=== PATIENT | female | born 1960 | race Caucasian/White ===

== ENCOUNTER → 2017-02-12 | Outpatient (CLI) | payer OTHER ==
[~2017-02-12] MED LIST: CYCL10TA9 PO; HYDR1TAB PO; IBP800T PO; LISI10TA PO
--- NOTE | 2017-02-12 15:32 | Diagnostic Imaging Report ---
Bilateral screening mammogram 2D views with tomosynthesis. The current study was also evaluated with a Computer Aided Detection (CAD) system. INDICATION: Screening. No current complaints stated on the questionnaire. COMPARISON: 08/31/15 FINDINGS: The breasts are composed of scattered fibroglandular densities. Occasional benign-appearing calcifications are seen. Allowing for technique and positional differences, no suspicious change is seen. IMPRESSION: No significant change. ACR BI-RADS Category 2: Benign findings. Result letter will be mailed to the patient. Note: At least 10% of breast cancer is not imaged by mammography. Dictated by: Dictated on workstation # [id number]
== END ==
LOC: RAD 07:29
PROVIDERS: ATTEND Nurse Practitioner
DX: Z12.31 Encounter for screening mammogram for malignant neoplasm of breast (principal)
CPT/HCPCS: 77067

== ENCOUNTER 2017-03-02 05:33 | Outpatient (CLI) | payer OTHER ==
[~2017-03-02] VITALS: Ht 160 cm; Wt 84.0 kg
[2017-03-02] MEDS ORDERED: OMEP40CA36 PO (11:10)
[2017-03-02] MEDS ORDERED: MEDR5TAB4 PO (11:16)
[2017-03-02] MEDS ORDERED: ESTR0.5T PO (11:16)
[2017-03-02] MEDS ORDERED: VALS160T28 PO (11:16)
== END 2017-03-02 11:17 ==
LOC: PREOP 05:33
PROVIDERS: ATTEND Surgery
DX: Z01.818 Encounter for other preprocedural examination (principal); K92.1 Melena

== ENCOUNTER 2017-03-06 12:25 | Day surgery (SDC) | payer OTHER ==
[~2017-03-06] VITALS: Ht 160 cm; Wt 84.0 kg
[~2017-03-06 12:25] MED LIST changes: +ESTR0.5T PO; +MEDR5TAB4 PO; +OMEP40CA36 PO; +VALS160T28 PO
[2017-03-06] MEDS ORDERED: LACTATED RINGERS 1,000 ML IV ONE (12:27)
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
[2017-03-06] MEDS ORDERED: LACTATED RINGERS 1,000 ML IV STA (12:31)
[2017-03-06] MEDS ORDERED: MIDAZOLAM 2 MG/2 ML (VERSED) VIAL ONE (12:40)
[2017-03-06] MEDS ORDERED: PROPOFOL INJECTION 50 ML IV ONE (12:40)
[2017-03-06 12:45] VITALS: BP 137/92
[2017-03-06] MEDS ORDERED: HURRICAINE EXT TUBE (BENZOCAINE) XX PRN (12:45)
--- NOTE | 2017-03-06 13:23 | Progress Note-Pre Operative ---
Pre-Operative Progress Note H&P Reviewed The H&P was reviewed, patient examined and no changes noted. Date Seen by Provider: Mar 06, 2017 Time Seen by Provider: 13:22 Date H&P Reviewed: Mar 06, 2017 Time H&P Reviewed: :22 Pre-Operative Diagnosis: epigastric abdominal pain, blood in stools, family history colon cancer KIM ARECHIGA DO Mar 06, 2017 1:23 pm
[2017-03-06] MEDS ORDERED: HURRICAINE EXT TUBE (BENZOCAINE) ONE (13:24)
--- NOTE | 2017-03-06 14:04 | Progress Note-Post Operative ---
Post-Operative Progess Note Surgeon (s)/Resident Manager (s) Surgeon KIM ARECHIGA DO Resident Manager: na Pre-Operative Diagnosis epigastric abdominal pain, blood in stools, family history colon cancer Post-Operative Diagnosis hemorrhoids Procedure & Operative Findings Date of Procedure 03/06/17 Procedure Performed/Findings egd c biopsy, colonoscopy Anesthesia Type per pipe buffer Estimated Blood Loss Estimated blood loss (mL): none Specimens/Packing Specimens Removed antrum KIM ARECHIGA DO Mar 06, 2017 2:04 pm
[2017-03-06 14:10] VITALS: BP 150/91
--- NOTE | 2017-03-06 14:11 | Discharge Inst-Simple/Standard ---
Discharge Inst-Standard Patient Instructions/Follow Up Plan of Care/Instructions/FU: 2 weeks Tian Activity as Tolerated: Yes Discharge Diet: Regular Diet KIM ARECHIGA DO Mar 06, 2017 2:11 pm
[2017-03-06 14:30] VITALS: BP 138/75
[2017-03-06 14:45] VITALS: BP 138/75
--- NOTE | 2017-03-07 09:22 | OPERATIVE REPORT ---
DATE OF SERVICE: 03/06/2017 PREOPERATIVE DIAGNOSES: Blood in stools, epigastric abdominal pain. POSTOPERATIVE DIAGNOSES: Normal EGD and hemorrhoids. PROCEDURE: EGD with biopsy and colonoscopy. SURGEON: Kim Overton DO ANESTHESIA: Per DUCT LAYER. ESTIMATED BLOOD LOSS: None. COMPLICATIONS: None. INDICATIONS: The patient is a 56-year-old female with some bright red blood in her stools at times. She has not had a colonoscopy. She has family history of colon cancer. She also has epigastric abdominal pain. She understands risks and benefits of the procedure and wished to proceed with procedure. Consent was signed in the chart. PROCEDURE: The patient was taken to the endoscopy suite, placed in left lateral recumbent position. Timeout was performed. Scope was inserted in the mouth, down the esophagus, stomach and into the duodenum without difficulty. There are no polyps, masses or ulcerations in the duodenum. The scope was slowly retracted back into the stomach where it was further insufflated. A couple of benign appearing small polyps were present. No masses or ulcerations. Scope was retroflexed noting no other pathology. The biopsy of the antrum was obtained. Scope was slowly retracted back into the distal esophagus. There are no polyps, masses, ulcerations, or erythematous changes present. Scope was slowly retracted back until completely removed. No other pathology noted. The patient then had digital rectal exams performed. There is no palpable polyps, masses or ulcerations. Some hemorrhoidal disease was present. Scope was inserted in the rectum and advanced all the way to the cecum with minimal difficulty. Prep was adequate. Scope was then slowly retracted back. There were no polyps, mass or ulcerations within the cecum, ascending, transverse, descending and sigmoid colon. Once in the rectum, scope was also retroflexed noting some small hemorrhoids. Scope was then slowly returned to its normal position and slowly withdrawn until completely removed. The patient tolerated the procedure well without any complications. She was taken to recovery room in stable condition. RECOMMENDATIONS: The patient will follow up on biopsy in approximately 2 weeks. Suspect the bright red bleeding from hemorrhoidal disease. We would repeat colonoscopy in 5 years due to family history of colon cancer. If she has any problems prior to that, she should be reevaluated at that time. 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
== END 2017-03-06 14:35 | disposition home or self-care (01) ==
LOC: ENDO 12:25
PROVIDERS: ATTEND Surgery
DX: K92.1 Melena (principal); K64.9 Unspecified hemorrhoids; R10.13 Epigastric pain; K31.7 Polyp of stomach and duodenum; Z80.0 Family history of malignant neoplasm of digestive organs; J45.909 Unspecified asthma, uncomplicated; I10 Essential (primary) hypertension; E66.9 Obesity, unspecified; Z68.32 Body mass index [BMI] 32.0-32.9, adult; Z79.899 Other long term (current) drug therapy

== ENCOUNTER 2018-02-01 14:16 | Emergency (ER) | payer OTHER ==
[~2018-02-01] VITALS: Ht 160 cm; Wt 90.7 kg
[~2018-02-01 14:16] MED LIST changes: -VALS160T28 PO; +VALS160T29 PO
[2018-02-01] MEDS ORDERED: TELM40TA3 (14:52)
[2018-02-01] MEDS ORDERED: MUPI22OI2 (14:52)
[2018-02-01] MEDS ORDERED: SULF-222 (14:53)
[2018-02-01] MEDS ORDERED: NS IV 1000 ML 1,000 ML IV ONE (15:11)
[2018-02-01] MEDS ORDERED: ONDANSETRON 4 MG/2 ML (SDV) Z0FRAN IVP ONE (15:15)
[2018-02-01 15:26] LABS: BASOPHILS % (AUTO) 0 % (0-10); EOSINOPHILS % (AUTO) 0 % (0-10); HEMATOCRIT 38 % (35-52); HEMOGLOBIN 13.3 G/DL (11.5-16.0); LYMPHOCYTES # (AUTO) 0.3 X 10^3 (1.0-4.0); LYMPHOCYTES % (AUTO) 5 % (12-44); MEAN CORPUSCULAR HEMOGLOBIN 33 PG (25-34); MEAN CORPUSCULAR HGB CONC 35 G/DL (32-36); MEAN CORPUSCULAR VOLUME 94 FL (80-99); MEAN PLATELET VOLUME 9.8 FL (7.4-10.4); MONOCYTES # (AUTO) 0.4 X 10^3 (0.0-1.0); MONOCYTES % (AUTO) 5 % (0-12); NEUTROPHILS # (AUTO) 6.5 X 10^3 (1.8-7.8); NEUTROPHILS % (AUTO) 90 % (42-75); PLATELET COUNT 230 10^3/uL (130-400); RED BLOOD COUNT 4.03 10^6/uL (4.35-5.85); RED CELL DISTRIBUTION WIDTH 11.4 % (10.0-14.5); WHITE BLOOD COUNT 7.2 10^3/uL (4.3-11.0)
--- NOTE | 2018-02-01 15:40 | Diagnostic Imaging Report ---
INDICATION: Fever and chills. TIME OF EXAM: 03:55 p.m. No prior studies are available for comparison. The heart size is normal. The pulmonary vascularity is unremarkable. The lungs are clear. No infiltrate, effusion or pneumothorax is detected. IMPRESSION: No acute cardiopulmonary process is detected. Dictated by: Dictated on workstation # [id number]
[2018-02-01 15:41] LABS: BAND NEUTROPHILS 0 %; BASOPHILS % (MANUAL) 1 %; EOSINOPHILS % (MANUAL) 0 %; LYMPHOCYTES % (MANUAL) 4 %; MONOCYTES % (MANUAL) 1 %; NEUTROPHILS % (MANUAL) 94 %; RBC MORPH NORMAL
[2018-02-01 15:50] LABS: ALANINE AMINOTRANSFERASE 15 U/L (0-55); ALBUMIN 3.9 GM/DL (3.2-4.5); ALKALINE PHOSPHATASE 51 U/L (40-136); BILIRUBIN,TOTAL 0.8 MG/DL (0.1-1.0); BUN/CREATININE RATIO 7; CALCIUM 8.7 MG/DL (8.5-10.1); CARBON DIOXIDE 20 MMOL/L (21-32); CHLORIDE 103 MMOL/L (98-107); CREATININE SERUM 0.91 MG/DL (0.60-1.30); GFR ESTIMATED > 60; GLUCOSE 105 MG/DL (70-105); POTASSIUM 3.5 MMOL/L (3.6-5.0); SODIUM 133 MMOL/L (135-145); TOTAL PROTEIN 6.7 GM/DL (6.4-8.2)
--- NOTE | 2018-02-01 16:21 | Diagnostic Imaging Report ---
EXAM: US VENOUS LOWER EXT LT. INDICATION: Left lower extremity pain and swelling. Redness in left calf. COMPARISON: None. TECHNIQUE: Duplex, latham-scale and color-flow imaging of the left lower extremity venous system was performed FINDINGS: The left common femoral vein, superficial femoral vein, profunda femoris, and popliteal veins are normal. These vessels show normal compressibility, color flow, and Doppler augmentation. The deep calf veins demonstrate no distinct intraluminal thrombus where seen. IMPRESSION: Negative venous Doppler of the left lower extremity. Dictated by: Dictated on workstation # [id number]
[2018-02-01] MEDS ORDERED: CLINDAMYCIN 900 MG/50 ML IVPB 50 ML IV ONE (16:45)
[2018-02-01 16:51] LABS: BILIRUBIN,URINE NEGATIVE (NEGATIVE); CLARITY,URINE CLEAR; COLOR,URINE YELLOW; GLUCOSE, URINE (UA) NEGATIVE (NEGATIVE); KETONES,URINE 3+ (NEGATIVE); LEUKOCYTE ESTERASE ,URINE NEGATIVE (NEGATIVE); NITRITE,URINE NEGATIVE (NEGATIVE); PH,URINE 7 (5-9); PROTEIN,URINE 1+ (NEGATIVE); UROBILINOGEN,URINE NORMAL (NORMAL)
[2018-02-01 17:15] LABS: BACTERIA,URINE NEGATIVE /HPF
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
[2018-02-01] MEDS ORDERED: CLIN300C11 PO (17:35)
[2018-02-01 18:05] VITALS: BP 136/90
== END 2018-02-01 18:05 | disposition home or self-care (01) ==
LOC: EDUNIT# 14:16 → ER 14:17
DX: S81.802A Unspecified open wound, left lower leg, initial encounter (principal); L03.116 Cellulitis of left lower limb; R50.9 Fever, unspecified; I10 Essential (primary) hypertension; K21.9 Gastro-esophageal reflux disease without esophagitis; Z88.0 Allergy status to penicillin; Z91.041 Radiographic dye allergy status; W22.09XA Striking against other stationary object, initial encounter
CPT/HCPCS: 36415; 71046; 80053; 81000; 83605; 85007; 85027; 86141; 87040; 87077; 87088; 96361; 96365; 96375

== ENCOUNTER → 2018-03-12 | Outpatient (CLI) | payer OTHER ==
[~2018-03-12] MED LIST changes: +CLIN300C11 PO; +MUPI22OI2; +SULF-222; +TELM40TA3
--- NOTE | 2018-03-12 13:50 | Diagnostic Imaging Report ---
INDICATION: Routine screening. COMPARISON: 02/12/2017 and 08/31/2015. TECHNIQUE: 2D and 3D bilateral screening mammography was performed with CAD. FINDINGS: Both breasts remain heterogeneously dense, limiting the sensitivity of mammography. No discrete mass or malignant appearing microcalcifications are seen. The axillae are unremarkable. IMPRESSION: No mammographic features suspicious for malignancy are identified. ACR BI-RADS Category 1: Negative. Result letter will be mailed to the patient. Note: At least 10% of breast cancer is not imaged by mammography. Dictated by: Dictated on workstation # [id number]
== END ==
LOC: RAD 08:02
PROVIDERS: ATTEND Nurse Practitioner
DX: Z12.31 Encounter for screening mammogram for malignant neoplasm of breast (principal)
CPT/HCPCS: 77067

== ENCOUNTER 2018-04-15 10:15 | Outpatient (CLI) | payer OTHER ==
[~2018-04-15] VITALS: Ht 160 cm; Wt 96.2 kg
[~2018-04-15 10:15] MED LIST changes: -TELM40TA3; +TELM40TA3 PO
[2018-04-15 10:25] VITALS: BP 152/96
[2018-04-15 10:59] LABS: BASOPHILS % (AUTO) 1 % (0-10); EOSINOPHILS # (AUTO) 0.2 10^3/uL (0.0-0.3); EOSINOPHILS % (AUTO) 3 % (0-10); HEMATOCRIT 40 % (35-52); HEMOGLOBIN 13.3 G/DL (11.5-16.0); LYMPHOCYTES % (AUTO) 31 % (12-44); MEAN CORPUSCULAR HEMOGLOBIN 32 PG (25-34); MEAN CORPUSCULAR HGB CONC 34 G/DL (32-36); MEAN CORPUSCULAR VOLUME 95 FL (80-99); MEAN PLATELET VOLUME 9.9 FL (7.4-10.4); MONOCYTES # (AUTO) 0.4 X 10^3 (0.0-1.0); MONOCYTES % (AUTO) 7 % (0-12); NEUTROPHILS # (AUTO) 3.8 X 10^3 (1.8-7.8); NEUTROPHILS % (AUTO) 59 % (42-75); PLATELET COUNT 305 10^3/uL (130-400); RED BLOOD COUNT 4.18 10^6/uL (4.35-5.85); RED CELL DISTRIBUTION WIDTH 12.3 % (10.0-14.5); WHITE BLOOD COUNT 6.5 10^3/uL (4.3-11.0)
[2018-04-15 11:11] LABS: BACTERIA,URINE TRACE /HPF; BILIRUBIN,URINE NEGATIVE (NEGATIVE); CLARITY,URINE CLEAR; COLOR,URINE YELLOW; GLUCOSE, URINE (UA) NEGATIVE (NEGATIVE); KETONES,URINE NEGATIVE (NEGATIVE); LEUKOCYTE ESTERASE ,URINE 1+ (NEGATIVE); NITRITE,URINE NEGATIVE (NEGATIVE); PH,URINE 6 (5-9); PROTEIN,URINE NEGATIVE (NEGATIVE); UROBILINOGEN,URINE NORMAL (NORMAL); WBC,URINE RARE /HPF
== END 2018-04-15 11:00 | disposition home or self-care (01) ==
LOC: PREOP 10:15
PROVIDERS: ATTEND Obstetrics & Gynecology
DX: Z01.812 Encounter for preprocedural laboratory examination (principal); Z11.2 Encounter for screening for other bacterial diseases; N81.6 Rectocele
CPT/HCPCS: 36415; 81000; 85025; 86850; 86900; 86901; 87081

== ENCOUNTER 2018-04-23 07:09 | Day surgery (SDC) | payer OTHER ==
[~2018-04-23] VITALS: Ht 160 cm; Wt 96.2 kg
[2018-04-23] VITALS (7 sets, daily range): BP systolic 130–140; BP diastolic 65–85
[2018-04-23] MEDS: LACTATED RINGERS 1,000 ML IV PRN ×3 (07:20→11:30)
[2018-04-23] MEDS ORDERED: metroNIDAZOLE 500MG/100ML IVPB 100 ML ONE (07:32)
[2018-04-23] MEDS ORDERED: ceFAZolin 1,000 MG/10 ML (ANCEF) VIAL ONE (07:32)
[2018-04-23] MEDS ORDERED: NS (IVPB) 50 ML ONE (07:32)
[2018-04-23] MEDS ORDERED: metroNIDAZOLE 500MG/100ML IVPB 100 ML IV ONE (07:45)
[2018-04-23] MEDS ORDERED: ceFAZolin INJECTION 1,000 MG in NS (IVPB) 50 ML IV ONE (07:45)
--- NOTE | 2018-04-23 07:52 | Progress Note-Pre Operative ---
Pre-Operative Progress Note H&P Reviewed The H&P was reviewed, patient examined and no changes noted. history and physical updated Date Seen by Provider: Apr 23, 2018 Time Seen by Provider: 07:35 Date H&P Reviewed: Apr 23, 2018 Time H&P Reviewed: 07:35 Pre-Operative Diagnosis: incomplete uterovaginal prolapse, rectocele/cystocele , RAUL JOVAN BARTON DO Apr 23, 2018 07:52
[2018-04-23] MEDS ORDERED: CATHETER FLUSH 10 ML SYR IV PRN (08:00)
[2018-04-23] MEDS ORDERED: fentaNYL INJECTION 100 MCG/2 ML AMP ONE ×2 (08:10→10:43)
[2018-04-23] MEDS ORDERED: MIDAZOLAM 2 MG/2 ML (VERSED) VIAL ONE (08:11)
[2018-04-23] MEDS ORDERED: proPOfol 200 MG/20 ML (DIPRIVAN) VIAL IV ONE (08:11)
[2018-04-23] MEDS ORDERED: SEVOFLURANE (ULTANE) 15 ML INHAL SOLN ONE ×11 (08:11→11:53)
[2018-04-23] MEDS ORDERED: ONDANSETRON 4 MG/2 ML (SDV) Z0FRAN ONE (08:11)
[2018-04-23] MEDS ORDERED: LIDOCAINE PF 2% 5 ML (XYLOCAINE) VIAL ONE (08:11)
[2018-04-23] MEDS ORDERED: ROCURONIUM 10 MG/ML 5 ML SYRINGE IV ONE (08:11)
[2018-04-23] MEDS ORDERED: DEXAMETHASONE 10 MG/ML (DECADRON) 1 ML VIAL ONE (08:11)
[2018-04-23] MEDS ORDERED: NEOSTIGMINE 1 MG/ML 5 ML SYRINGE ONE (08:14)
[2018-04-23] MEDS ORDERED: GLYCOPYRROLATE 0.2 MG/ML (ROBINUL) 2 ML VIAL ONE (08:14)
[2018-04-23] MEDS ORDERED: ESTRADIOL VAGINAL CREAM 42.5 GM (ESTRACE) VG ONE (08:25)
[2018-04-23] MEDS ORDERED: VASOPRESSIN INJECTION 20 UNIT/ML VIAL ONE (08:25)
[2018-04-23] MEDS ORDERED: BUP/EPI 0.5% 1:200,000 (SENSORCAINE) 30 ML VIAL ONE (08:25)
[2018-04-23] MEDS ORDERED: NS (IVPB) 100 ML ONE (08:25)
[2018-04-23] MEDS ORDERED: RT-ALBUTEROL HFA (VENTOLIN) PER PUFF IH ONE (10:54)
[2018-04-23] MEDS ORDERED: INDIGO CARMINE 8 MG/ML 5 ML AMP ONE (11:08)
[2018-04-23] MEDS: KETOROLAC 30 MG/ML VIAL IV PRN ×2 (11:35→18:00)
[2018-04-23] MEDS ORDERED: KETOROLAC 30 MG/ML VIAL ONE (11:36)
--- NOTE | 2018-04-23 11:54 | Operative Report ---
Operative Report Date of Procedure/Surgery Apr 23, 2018 Surgeon (s) JOVAN BARTON DO Neurological Surgeon (s): Avani Quiroz APRN Post-Operative Diagnosis incomplete uterovaginal prolapse, stress incontinence Procedure Performed RaTH-BSO, rectocele repair with perineorrhaphy, Solyx pubovaginal sling Description of Procedure Anesthesia Type: General Estimated blood loss (mL): 220 ml Specimen(s) collected/removed uterus tubes and ovaries Description of the Procedure After informed consent was obtained, patient was taken into the operating room where general anesthetic was found to be adequate. She was prepped and draped in the usual sterile fashion in the dorsal lithotomy position. A Weaver catheter was placed. A speculum was placed in the vagina. There is a large rectocele (4+). The cervix was visualized and was prolapsed to the introitus. The anterior lip was grasped with a sharp toothed tenaculum. The uterus was sounded and depth was approximately 8 centimeters. I placed the Tamar device. And then set the Tamar to 8 cm and a 3.5 cm collar was advanced over the cervix. I inserted the Tamar without difficulty, inflating the balloon and securing it around the fornix of the cervix. The collar was then secured with sutures at 12 o'clock. Attention was then turned to the patient's abdomen. A supraumbilical incision was made about 8 mm. A Veress needle was inserted and I had difficulty confirming intraabdominal placement, but was eventually able to confirm with a drop in pressure and the saline drop test. I then insufflated the abdomen to a maximum of 15 mmHg with warmed CO2 gas. I then placed an 8 mm trocar and then the Da Josh camera and intraperitoneal placement was confirmed. I then determined the procedure could be continued robotically. The first robotic port was placed about 15 cm lateral to the right and left of the umbilical placement and slightly inferior. These are both 8 mm trocars. These were placed under direct visualization of the laparoscope. 0.25% Marcaine was injected prior to placement of all trocars. When all placements were confirmed, the patient was placed in steep Trendelenburg allowing adequate visualization and the robot was brought in for docking. The docking was accomplished without difficulty. A survey of the pelvis confirmed the above mentioned findings. There were adhesions of the bowel to the left IP and the left pelvis and these were taken down prior to being able to visualize the left IP ligament. Next, I was able to visualize the round ligaments bilaterally and grasped them and cauterized with bipolar cautery and then cut with my marv. At this point, I then did bilateral salpingoophorectomy. I grasped the infundibulopelvic ligaments bilaterally with the bipolar forceps, cauterized and then cut with the monopolar marv. I sealed the vessel and transected bilaterally using the bipolar cautery and then cut with the monopolar marv. I then moved my dissection to the posterior leaves of the broad ligament. I dissected the posterior leaves of the broad ligament off the uterine arteries skeletonizing them bilaterally. I then took a second clamp with the bipolar cautery and with the marv, transected the vessels away from the lateral aspect to the cervical stroma. I dissected the anterior peritoneum off the lower uterine segment. I continually pushed the bladder back and I took excessively great care and I was eventually able to dissect the vesicouterine peritoneum off the lower uterine segment. I then dissected in a V fashion towards the midline between the uterosacral ligaments. This allowed me to skeletonize the uterine vessels bilaterally. The balloon on the TAMAR was insufflated. This allowed me to see the TAMAR circumferentially. I then performed a colpotomy anteriorly and then amputate with cervix away from the vaginal fornix. I then continued the colpotomy circumferentially. Once this was performed, the assistant strength coach removed the uterus through the vagina. A sponge was left in the vagina to maintain pneumoperitoneum. I then began closure of the vaginal cuff. The uterus was left in the vagina to maintain pneumoperitoneum. I closed the apices of the vaginal cuff with 2-0 Vicryl V lock sutures with a colposuspension through the uterosacral ligaments. This suspended the apices of the vaginal cuff. I extended this to the midline from both sides and overlapped the V lock sutures in the midline. Excellent closure is noted and hemostasis is achieved. All the needles were removed from the patient's abdomen. Patient was now repositioned for the vaginal portion of the procedure. The Lonestar retractor was placed and sutured into place. There was only a small cystocele but greater than 45 degree rotation of the urethra. The cystocele did not need to be repaired. I did the rectocele first. The perineum was grasped on either side of the perineum with Rashad clamps and then injected with dilute vasopressin for hydrodissection. I then made an incision in the perineum with a scalpel. I then undermined the posterior vaginal epithelium with the Chavez scissors. I then made an incision in the midline to the vaginal cuff and then dissected the pubovaginal fascia off of the posterior vaginal epithelium. Once this was completed and the bleeding was controlled with cautery, I repaired the defect with interrupted figure of eight stitches of 2-0 Vicryl. this reduced the defect. I repaired this in two layers and then excised the excess vaginal epithelium. There was good support of the vagina cuff. The vaginal defect was closed with 2-0 Vicryl in a running fashion. At this point I made a pyramidal incision in the perineum and then repaired this defect in standard fashion with the 2-0 Vicryl. At this point, the anterior vaginal epithelium was grasped in the midline with an Allis clamp. The anterior vaginal epithelium was injected with dilute vasopressin. A 1 cm incision was made in the suburethral space with a scalpel about 1.5 cm from the urethral meatus. I dissected bilaterally to the obturator membranes and then inserted the Solyx bilaterally and then tightened under the midurethra. I did a cystoscopy which was negative. There was bilateral urethral efflux of urine. I then kept 300 ml in the bladder and did a Cred. There was minimal leakage. The sling laid gently under the urethra and was not too tight. There was no intravesicular pathology. The incision was closed with 4-0 Monocryl in a running fashion. Weaver was reinserted. Vaginal pack with Estrace cream was placed. Patient was awakened and taken to the recovery room in stable condition. Following the case, instrument counts were correct. The patient was repositioned in the supine position and awakened from general anesthesia without difficulty. She was taken to recovery in stable condition. She will be observed overnight. Findings of the Procedure 4+ rectocele, 2+ uterine descensus small uterus, adhesions bowel to left side wall > 45 degree rotation normal bladder Allergies and Home Medications Allergies Coded Allergies: nickel (Verified Allergy, Intermediate, RASH, 03/02/17) selenium sulfide (Verified Allergy, Intermediate, RASH, 03/02/17) Iodinated Contrast- Oral and IV Dye (Verified Allergy, Unknown, 03/02/17) Home Medications Estradiol 0.5 Mg Tablet, 0.5 MG PO DAILY, (Reported) Hydrocodone Bit/Acetaminophen 1 Ea Tablet, 1 EA PO Q6H PRN for PAIN-MODERATE TO SEVERE Prescribed by: JOVAN BARTON on 04/24/18 1008 Ibuprofen 600 Mg Tablet, 600 MG PO Q6H PRN for PAIN-MILD Prescribed by: JOVAN BARTON on 04/24/18 1008 Telmisartan 40 Mg Tablet, 40 MG PO DAILY, (Reported) Patient Home Medication List Home Medication List Reviewed: Yes JOVAN BARTON DO Apr 23, 2018 11:54 am
[2018-04-23] MEDS ORDERED: LACTATED RINGERS 1,000 ML IV SCH (11:55)
[2018-04-23] MEDS ORDERED: HYDROmorphone 2 MG/ML VIAL (DILAUDID) IV PRN (12:00)
[2018-04-23] MEDS ORDERED: ONDANSETRON 4 MG/2 ML (SDV) Z0FRAN IV PRN ×2 (12:00)
[2018-04-23] MEDS ORDERED: METOCLOPRAMIDE INJ 10 MG/2 ML (REGLAN) IV PRN (12:00)
[2018-04-23] MEDS ORDERED: BENZOCAINE/MENTHOL (DERMOPLAST) 56 ML CAN TP PRN (12:00)
[2018-04-23] MEDS ORDERED: morphine INJ 10 MG/ML 1ML (SYR OR VIAL) IVP ONE (12:00)
[2018-04-23] MEDS ORDERED: CHLORASEPTIC LOZENGE MM PRN (12:00)
[2018-04-23] MEDS ORDERED: DOCUSATE SODIUM 100 MG (COLACE) CAP PO PRN (12:00)
[2018-04-23] MEDS ORDERED: KETOROLAC 30 MG/ML VIAL IVP PRN (12:00)
[2018-04-23] MEDS ORDERED: ANTACID SUSP 30 ML UDC (MYLANTA) PO PRN (12:00)
[2018-04-23] MEDS ORDERED: MEPERIDINE (DEMEROL) INJ 50 MG/ML IVP ONE (12:00)
[2018-04-23] MEDS ORDERED: SIMETHICONE 80 MG (MYLICON) CHEW PO PRN (12:00)
[2018-04-23] MEDS ORDERED: ONDANSETRON 4 MG/2 ML (SDV) Z0FRAN IVP PRN (12:00)
[2018-04-23] MEDS: D5 LR IV SOLUTION 1,000 ML IV SCH ×2 (16:41→20:44)
[2018-04-24] MEDS: HYDROcodone/APAP 7.5 MG/325 MG (LORTAB, LORCET PLUS) TABLET PO PRN ×2 (03:15→10:47)
[2018-04-24] MEDS: D5 LR IV SOLUTION 1,000 ML IV SCH (04:44)
[2018-04-24] MEDS ORDERED: IBUPROFEN 600 MG (MOTRIN) TAB PO PRN (04:45)
[2018-04-24 06:20] VITALS: BP 137/66
--- NOTE | 2018-04-24 07:58 | Anesthesia-General Post-Op ---
General Patient Condition Mental Status/LOC: Same as Preop Cardiovascular: Satisfactory Nausea/Vomiting: Absent Respiratory: Satisfactory Pain: Controlled Complications: Absent Post Op Complications Complications None Follow Up Care/Instructions Patient Instructions None needed. Anesthesia/Patient Condition Patient Condition Patient is doing well, no complaints, stable vital signs, no apparent adverse anesthesia problems. No complications reported per nursing. JAYNE ALEJO CRNA Apr 24, 2018 07:58
[2018-04-24 08:15] VITALS: BP 124/60
[2018-04-24] MEDS ORDERED: ENOXAPARIN 40 MG/0.4 ML (LOVENOX) SYR SC SCH (10:00)
[2018-04-24] MEDS ORDERED: HYDR-34 PO (10:08)
[2018-04-24] MEDS ORDERED: IBUP-844 PO (10:08)
--- NOTE | 2018-04-24 10:17 | Discharge Inst-Women's Service ---
Discharge Inst-Women's Serv Depart Medication/Instructions New, Converted or Re-Newed RX: RX on Chart Instructions no lifting over 25 lbs. Keep bandages in place for 3 days and then removed them in the shower. Do not yank off, moisten if stuck to the glue and then remove Keep incisions clean and dry after that Expect some light bleeding/spotting for 2 weeks May have some discharge but if increases or has a foul odor then please let us know. Follow up in 1 week for incision check and 10-12 weeks for pelvic exam NOTHING in the vagina until you are cleared, except the vaginal cream with applicator. You may start using thing in 1-[address] 1/2 gram with the applicator and then use then rest on the finger on the perineum and below the urethra. If you cannot urinate please let me know zac! Office is [phone] ([facility]) no driving for 1 weeks Final Diagnosis incomplete genital prolapse rectocele stress incontinence Consults/Follow Up Additional Follow Up: Yes (1 week with Avani Canales and then 10-[address] Barton) Activity Activity: Activity as Tolerated Driving Instructions: No Driving for 1 Week NO SMOKING: NO SMOKING Nothing Inside Vagina: No Douching, No [place], No Tampons Diet Discharge Diet: No Restrictions Symptoms to Report to : Bleeding Excessive, Pain Increased, Fever Over 101 Degrees F, Urination Difficulty, Vaginal Bleeding Increase, Cramps in Feet or Legs, Vaginal Discharge Foul For Any Problems or Questions: Contact Your Physician Skin/Wound Care Infection Signs and Symptoms: Increased Redness, Foul Odor of Wound, Increased Drainage, Skin Itchy or Has a Rash, Increased Swelling, Temperature Above 101 F Operative Area Clean and Dry: Keep Incision Clean/Dry, You May Remove Bandage ( see above) Stitches/[place]/Dermabond: Dermabond Bathing Instructions: Shower (no baths, no hot tubs, no soaking) JOVAN BARTON DO Apr 24, 2018 10:17
[2018-04-24] MEDS ORDERED: BENZOCAINE/MENTHOL (DERMOPLAST) 56 ML CAN TP PRN (11:45)
[2018-04-24 13:00] VITALS: BP 108/58
[2018-04-24 13:30] VITALS: BP 108/58
[2018-04-25] MEDS ORDERED: ENOXAPARIN 40 MG/0.4 ML (LOVENOX) SYR SC SCH (09:00)
== END 2018-04-24 13:30 | disposition home or self-care (01) ==
LOC: SDC 07:09 → WS 12:08 → SDC 04-24 13:30
PROVIDERS: ATTEND Obstetrics & Gynecology
DX: N81.2 Incomplete uterovaginal prolapse (principal); N39.3 Stress incontinence (female) (male); N80.0 Endometriosis of uterus; N83.202 Unspecified ovarian cyst, left side; I10 Essential (primary) hypertension; J45.909 Unspecified asthma, uncomplicated; E66.9 Obesity, unspecified; Z68.37 Body mass index [BMI] 37.0-37.9, adult; Z79.899 Other long term (current) drug therapy
CPT/HCPCS: 36415; 86850; 86900; 86901; 88307; 94664

== ENCOUNTER 2019-12-13 10:25 | Emergency (ER) | payer OTHER ==
[~2019-12-13] VITALS: Ht 160 cm; Wt 83.9 kg
[~2019-12-13 10:25] MED LIST changes: +HYDR-34 PO; +IBUP-844 PO; +OMEP40CA27 PO; -OMEP40CA36 PO; -TELM40TA3 PO; +TELM40TA6 PO
[2019-12-13] MEDS ORDERED: HYDROcodone/APAP 5 MG/325 MG (LORTAB) TAB PO ONE (10:45)
[2019-12-13] MEDS ORDERED: TETANUS,DIPTH,PERTUSS P/F (BOOSTRIX) 0.5 ML VIAL IM ONE (10:45)
--- NOTE | 2019-12-13 10:49 | ED Fall/Injury ---
General Chief Complaint: Trauma-Non Activation Stated Complaint: FALL - R WRIST PAIN Nursing Triage Note: ARRIVED VIA AMB TO ROOM 05. STATES LAST NIGHT SHE TRIPPED OVER HER DOG LANDING ON HER RIGHT WRIST AND HITTING THE RIGHT SIDE OF HER HEAD. DENIES LOC OR TAKING BLOOD THINNERS. COMPLAINS OF BEING DIZZY AND RIGHT WRIST PAIN. Source: patient Exam Limitations: no limitations History of Present Illness Date Seen by Provider: Dec 13, 2019 Time Seen by Provider: 10:38 Initial Comments The patient presents ER by private conveyance with chief complaint that she was trying to get in the door last night her large dog got between her and her knocking her backwards onto her right outstretched arm hitting her shoulder and the right side of her head. She did not lose consciousness. She does not have a tetanus vaccine in the last 5 years. She did not seek help at that time because she thought she could sleep it off. She did not take anything for pain. She says now she's having increasing swelling and pain in her right wrist with decreased mobility. She has full sensation and no paresthesias. No previous injury on her right wrist. Allergies and Home Medications Allergies Coded Allergies: nickel (Verified Allergy, Intermediate, RASH, 03/02/17) selenium sulfide (Verified Allergy, Intermediate, RASH, 03/02/17) Iodinated Contrast- Oral and IV Dye (Verified Allergy, Unknown, 03/02/17) Home Medications Estradiol 0.5 Mg Tablet, 0.5 MG PO DAILY, (Reported) Hydrocodone Bit/Acetaminophen 1 Ea Tablet, 1 EA PO Q6H PRN for PAIN-MODERATE TO SEVERE Prescribed by: JOVAN BARTON on 04/24/18 1008 Hydrocodone/Acetaminophen 1 Each Tablet, 1 EACH PO Q6H PRN for PAIN-BREAKTHROUGH Prescribed by: OCTAVIANO AREVALO on 12/13/19 1248 Ibuprofen 600 Mg Tablet, 600 MG PO Q6H PRN for PAIN-MILD Prescribed by: JOVAN BARTON on 04/24/18 1008 Ondansetron 4 Mg Tab.rapdis, 4 MG PO Q6H PRN for NAUSEA/VOMITING Prescribed by: OCTAVIANO AREVALO on 12/13/19 1248 Telmisartan 40 Mg Tablet, 40 MG PO DAILY, (Reported) Patient Home Medication List Home Medication List Reviewed: Yes Review of Systems Review of Systems Constitutional: No chills, No diaphoresis Eyes: Denies Blindness, Denies Drainage Ears, Nose, Mouth, Throat: denies ear pain, denies ear discharge Respiratory: No cough, No short of breath Cardiovascular: No chest pain, No edema Gastrointestinal: No abdominal pain, No nausea Genitourinary: No discharge, No dysuria Musculoskeletal: see HPI; No back pain; joint pain Skin: see HPI, change in color All Other Systems Reviewed Negative Unless Noted: Yes Past Qeufmlf-Alujls-Jawqjz Hx Patient Social History Alcohol Use: Denies Use Recreational Drug Use: No Smoking Status: Never a Smoker Recent Foreign Travel: No Contact w/Someone Who Travel: No Recent Infectious Disease Expo: No Recent Hopitalizations: No Immunizations Up To Date Date of Influenza Vaccine: Feb 18, 2018 Seasonal Allergies Seasonal Allergies: Yes Past Medical History Surgeries: Yes (KNEE SCOPE, REPAIR OF BROKEN NOSE) Respiratory: No (asthma as a child) Cardiac: Yes Hypertension Neurological: No Reproductive Disorders: Yes Female Reproductive Disorders: Denies Sexually Transmitted Disease: No HIV/AIDS: No Genitourinary: No Gastrointestinal: No Gastroesophageal Reflux Musculoskeletal: Yes (KNEE) Arthritis Endocrine: No HEENT: No (glasses) Loss of Vision: Bilateral Hearing Impairment: Denies Cancer: No Psychosocial: No Integumentary: Yes Psoriasis Blood Disorders: No Adverse Reaction/Blood Tranf: No (N/A) Family Medical History Asthma 19 FATHER 19 MOTHER Cardiovascular disease 19 FATHER 19 MOTHER G8 BROTHER Diabetes mellitus 19 FATHER Hypertension 19 FATHER 19 MOTHER G8 BROTHER G8 SISTER Kidney disease G8 SISTER Myocardial infarction G8 SISTER Respiratory disorder 19 FATHER (copd,) Physical Exam Vital Signs Vital Signs - First Documented 12/13/19 10:30 Temp 36.4 Pulse 72 Resp 16 B/P (MAP) 158/91 (113) Pulse Ox 98 O2 Delivery Room Air Capillary Refill : Less Than 3 Seconds Height, Weight, BMI Height: 5'3.00" Weight: 212lbs. 0.0oz. 96.974789eu; 32.00 BMI Method:Stated General Appearance: WD/WN, mild distress HEENT: PERRL/EOMI, pharynx normal Neck: non-tender, full range of motion, supple, normal inspection Cardiovascular: normal peripheral pulses, regular rate, rhythm Respiratory: no respiratory distress, no accessory muscle use Peripheral Pulses: 2+ Radial Pulses (R), 2+ Radial Pulses (L) Gastrointestinal: normal bowel sounds, non tender Extremities: normal capillary refill, swelling (right wrist with tenderness over distal right radius and ulna. Hand nontender. Range of motion moderately limited secondary to swelling and pain.) Neurologic/Psychiatric: alert, normal mood/affect, oriented x 3 Skin: normal color, warm/dry, ecchymosis Sulema Coma Score Best Eye Response: (4) Open Spontaneously Best Verbal Response: (5) Oriented Best Motor Response: (6) Obeys Commands [place] Total: 15 Procedures/Interventions Splinting and Joint Reduction : Location: right wrist Pre-Proc Neuro Vasc Exam: normal Post-Proc Neuro Vasc Exam: normal Progress Short arm splint and sling placed using 3 inch fiberglass. After her splint placement she still had a good 2 out of 4 right radial pulses symmetric to her left side. She still had sensation and no paresthesias. Arm Sling: Medium Hand-Made Type: fiberglass Splint Application: Short Arm Progress/Results/Core Measures Results/Orders My Orders Orders - OCTAVIANO AREVALO Hydrocodone/Apap 5/325 Tablet (Lortab 5 (12/13/19 10:45) Dipht,Pertuss(Acell),Tet Adult (Boostrix (12/13/19 10:45) Wrist, Right, 3 Views Or More (12/13/19 10:43) Medications Given in ED Current Medications Medications Dose Ordered Sig/Fidelina Route Start Time Stop Time Status Last Admin Dose Admin Acetaminophen/ Hydrocodone Bitart 1 tab ONCE ONCE PO 12/13/19 10:45 12/13/19 10:46 DC 12/13/19 11:24 1 TAB Diphtheria/ Tetanus/Acell Pertussis 0.5 ml ONCE ONCE IM 12/13/19 10:45 12/13/19 10:46 DC 12/13/19 11:26 0.5 ML Vital Signs/I&O 12/13/19 12/13/19 10:30 13:04 Temp 36.4 36.4 Pulse 72 72 Resp 16 16 B/P (MAP) 158/91 (113) 158/91 (113) Pulse Ox 98 98 O2 Delivery Room Air Blood Pressure Mean: 113 Progress Progress Note : Time: 10:48 Progress Note Hydrocodone for her pain, ice pack and an x-ray of the right wrist. She is outside the window for significant intracranial bleed. Neurologically intact. We'll update her tetanus vaccination while she's here. We'll give her some conservative counseling for management of concussion. Diagnostic Imaging Diagonstic Imaging: Xray Plain Films/CT/US/NM/MRI: hand (right wrist) Comments NAME: RAPHAEL SINGH [facility] REC#: [id number] PT STATUS: REG ER : 1960 PHYSICIAN: OCTAVIANO AREVALO MD ADMIT DATE: 12/13/19/ER Draft Date of Exam:12/13/19 WRIST, RIGHT, 3 VIEWS OR MORE INDICATION: Wrist pain COMPARISON: None available TECHNIQUE: 3 radiographs of the right wrist dated 12/13/2019 FINDINGS: Acute comminuted fracturing of the distal radius is present. The fracture is mildly impacted. There is intra-articular extension to the wrist joint. Some fracture fragments are medially displaced while others are laterally displaced. Minimal resulting dorsal tilt. Acute slightly distracted ulnar styloid avulsion fracture. Small calcific density is noted dorsal to the mid carpal row on the lateral radiograph. No additional fracture or dislocation. Soft tissue swelling about the wrist. No suspicious radiopaque foreign body. IMPRESSION: Acute comminuted and slightly impacted distal radial fracture with associated intra-articular extension and slight dorsal tilt. Acute slightly distracted ulnar side avulsion fracture. Questionable triquetral avulsion fracture involving the dorsum of the carpus. Soft tissue swelling about the wrist. Dictated on workstation # [id number] Dict: 12/13/19 1145 Trans: 12/13/19 1157 [facility] [id number] Interpreted by: SAVANAH CHAVEZ MD Electronically signed by: Reviewed: Reviewed by Me Departure Impression Primary Impression: Fall Qualified Codes: W19.XXXA - Unspecified fall, initial encounter Additional Impression: Wrist fracture, right Qualified Codes: S62.101A - Fracture of unspecified carpal bone, right wrist, initial encounter for closed fracture Disposition: 01 HOME, SELF-CARE Condition: Stable Departure-Patient Inst. Decision time for Depature: 12:45 Referrals: DORIAN JUAREZ DO (PCP/Family) Primary Care Physician ARACELI ROPER MD Patient Instructions: Wrist Fracture (DC) Add. Discharge Instructions: Ice 20 minutes on every 2 hours while awake for the first 2 days. Tylenol 650 mg every 8 hours as necessary for pain. Ibuprofen 800 mg every 8 hours as necessary for pain. Hydrocodone one tablet every 6 hours as necessary for breakthrough pain. Hydrocodone will cause you to have drowsiness and constipation. MiraLAX to be helpful for constipation. Do not mix with alcohol or heavy machinery. Follow-up follow-up with orthopedic surgeon on Sunday to be seen within 3-5 days. All discharge instructions reviewed with patient and/or family. Voiced understanding. Scripts Ondansetron (Ondansetron Odt) 4 Mg Tab.rapdis 4 MG PO Q6H PRN for NAUSEA/VOMITING, #8 TAB 0 Refills Prov: OCTAVIANO AREVALO 12/13/19 Hydrocodone/Acetaminophen (Hydrocodone-Acetamin 5-325 mg) 1 Each Tablet 1 EACH PO Q6H PRN for PAIN-BREAKTHROUGH, #20 TAB 0 Refills Prov: OCTAVIANO AREVALO 12/13/19 Work/School Note: Work Release Form Date Seen in the Emergency Department: Dec 13, 2019 Return to Work: Dec 15, 2019 Restrictions: Need Release from Doctor Other Restrictions Listed Below: No use of right arm until released by surgeon. Copy Copies To 1: ARACELI ROPER MD, TITUS J Dec 13, 2019 10:49
--- NOTE | 2019-12-13 11:59 | Diagnostic Imaging Report ---
INDICATION: Wrist pain COMPARISON: None available TECHNIQUE: 3 radiographs of the right wrist dated 12/13/2019 FINDINGS: Acute comminuted fracturing of the distal radius is present. The fracture is mildly impacted. There is intra-articular extension to the wrist joint. Some fracture fragments are medially displaced while others are laterally displaced. Minimal resulting dorsal tilt. Acute slightly distracted ulnar styloid avulsion fracture. Small calcific density is noted dorsal to the mid carpal row on the lateral radiograph. No additional fracture or dislocation. Soft tissue swelling about the wrist. No suspicious radiopaque foreign body. IMPRESSION: Acute comminuted and slightly impacted distal radial fracture with associated intra-articular extension and slight dorsal tilt. Acute slightly distracted ulnar side avulsion fracture. Questionable triquetral avulsion fracture involving the dorsum of the carpus. Soft tissue swelling about the wrist. Dictated by: Dictated on workstation # [id number]
[2019-12-13] MEDS ORDERED: HYDR-83 PO (12:48)
[2019-12-13] MEDS ORDERED: ONDA4TAB11 PO (12:48)
--- NOTE | 2019-12-13 12:51 | NUR ---
DR AREVALO TO ROOM TO SPLINT.
[2019-12-13 13:04] VITALS: BP 158/91
== END 2019-12-13 13:04 | disposition home or self-care (01) ==
LOC: EDUNIT# 10:25 → ER 10:26
DX: S52.571A Other intraarticular fracture of lower end of right radius, initial encounter for closed fracture (principal); I10 Essential (primary) hypertension; R40.2410 Glasgow coma scale score 13-15, unspecified time; Z23 Encounter for immunization; Z88.2 Allergy status to sulfonamides; Z91.041 Radiographic dye allergy status; Z96.698 Presence of other orthopedic joint implants; Z82.49 Family history of ischemic heart disease and other diseases of the circulatory system; W01.0XXA Fall on same level from slipping, tripping and stumbling without subsequent striking against object, initial encounter
CPT/HCPCS: 29125; 73110; 99284; A4565; 90715

== ENCOUNTER 2020-03-15 08:14 | Emergency (ER) | payer OTHER ==
[~2020-03-15] VITALS: Ht 160 cm; Wt 90.9 kg
[~2020-03-15 08:14] MED LIST changes: +ACHD5005 PO; +ONDA4TAB11 PO
[2020-03-15] MEDS ORDERED: ONDANSETRON 4 MG/2 ML (SDV) Z0FRAN IVP ONE (08:30)
[2020-03-15] MEDS ORDERED: MECLIZINE 25 MG (ANTIVERT) TAB PO ONE (08:30)
[2020-03-15] MEDS ORDERED: SCOPOLAMINE 1.5 MG (TRANSDERM-SCOP) PATCH TD ONE (08:30)
--- NOTE | 2020-03-15 08:30 | ED General ---
General Stated Complaint: DIZZINESS Source of Information: Patient History of Present Illness Date Seen by Provider: Mar 15, 2020 Time Seen by Provider: 08:17 Initial Comments PT ARRIVES VIA POV FROM HOME PT STATES SHE HAS BEEN DIZZY SINCE YESTERDAY DIZZINESS WOULD COME AND GO, AND WAS PRESENT WHEN SHE GOT OUT OF BED THIS MORNING AND YESTERDAY MORNING. WAS DRIVING TO WORK THIS MORNING AND SHE WAS DIZZY AND HER VISION WAS A LITTLE BLURRY C/O NAUSEA, NO VOMITING NO HEADACHE NO PARESTHESIAS OR MOTOR DEFICITS NO CHEST PAIN NO SHORTNESS OF BREATH HEART FEELS LIKE IT IS BEATING A LITTLE FAST. DIZZINESS IS A SPINNING SENSATION, AND IS WORSE WHEN SHE BENDS OVER OR LOOKS DOWN. NO HISTORY OF SIMILAR STATES SHE FELL BACKWARDS OFF HER PORCH IN NOVEMBER AND BROKE HER RIGHT WRIST. STATES SHE DID NOT HAVE ANY TESTS/SCANS DONE ON HER HEAD STATES SHE HAS HAD SOME MILD, OCCASIONAL DIZZINESS SINCE THEN, BUT NOT LIKE WHAT SHE HAS BEEN HAVING YESTERDAY AND TODAY. PT IS NOT HAVING ANY SYMPTOMS AT ALL RIGHT NOW. NO FEVER OR RECENT ILLNESS PCP: DR. JUAREZ--SAW HIM LAST WEEK FOR ROUTINE EXAM ORTHOPEDIC SURGEON: DR. REYNA Allergies and Home Medications Allergies Coded Allergies: nickel (Verified Allergy, Intermediate, RASH, 03/02/17) selenium sulfide (Verified Allergy, Intermediate, RASH, 03/02/17) Iodinated Contrast- Oral and IV Dye (Verified Allergy, Unknown, 03/02/17) Home Medications Estradiol 0.5 Mg Tablet, 0.5 MG PO DAILY, (Reported) Hydrocodone Bit/Acetaminophen 1 Ea Tablet, 1 EA PO Q6H PRN for PAIN-MODERATE TO SEVERE Prescribed by: JOVAN BARTON on 04/24/18 1008 Hydrocodone/Acetaminophen 1 Each Tablet, 1 EACH PO Q6H PRN for PAIN-BREAKTHROUGH Prescribed by: OCTAVIANO AREVALO on 12/13/19 1248 Ibuprofen 600 Mg Tablet, 600 MG PO Q6H PRN for PAIN-MILD Prescribed by: JOVAN BARTON on 04/24/18 1008 Meclizine HCl 25 Mg Tablet, 50 MG PO Q6 PRN for DIZZINESS Prescribed by: MANN RODRIGUEZ on 03/15/20 1006 Ondansetron 4 Mg Tab.rapdis, 4 MG PO Q6H PRN for NAUSEA/VOMITING Prescribed by: OCTAVIANO AREVALO on 12/13/19 1248 Ondansetron 4 Mg Tab.rapdis, 4 MG PO Q4H Prescribed by: MANN RODRIGUEZ on 03/15/20 1006 Scopolamine 1 Each Patch.td72, 1 EACH TD Q72H Prescribed by: MANN RODRIGUEZ on 03/15/20 1006 Telmisartan 40 Mg Tablet, 40 MG PO DAILY, (Reported) Patient Home Medication List Home Medication List Reviewed: Yes Review of Systems Review of Systems Constitutional: see HPI; No chills, No diaphoresis; dizziness; No fever, No malaise, No weakness EENTM: see HPI, blurred vision Respiratory: no symptoms reported; No short of breath Cardiovascular: see HPI, palpitations Gastrointestinal: see HPI; No abdominal pain; nausea; No vomiting Genitourinary: no symptoms reported Musculoskeletal: other (BROKE RIGHT WRIST IN NOVEMBER--HAS HAD SURGERY AND IS NOW GOING TO PHYSCIAL THERAPY TWICE A WEEK AT [facility]) Skin: no symptoms reported Psychiatric/Neurological: Anxiety; Denies Headache, Denies Numbness, Denies Paresthesia, Denies Seizure, Denies Tingling, Denies Weakness Hematologic/Lymphatic: No Symptoms Reported Immunological/Allergic: no symptoms reported Past Voscbtx-Gacrxt-Rchgdj Hx Past Med/Social Hx: Reviewed and Corrections made Patient Social History Alcohol Use: Occasionally Uses Recreational Drug Use: No Smoking Status: Never a Smoker Recent Foreign Travel: No Contact w/Someone Who Travel: No Recent Hopitalizations: No Immunizations Up To Date Date of Influenza Vaccine: Feb 18, 2018 Seasonal Allergies Seasonal Allergies: Yes Past Medical History Surgeries: Yes (KNEE SCOPE, REPAIR OF BROKEN NOSE;RIGHT WRIST FX/ORIF 11/2019) Orthopedic Respiratory: No (asthma as a child) Cardiac: Yes Hypertension Neurological: No Reproductive Disorders: Yes Female Reproductive Disorders: Denies 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 Sexually Transmitted Disease: No HIV/AIDS: No Genitourinary: No Gastrointestinal: Yes Gastroesophageal Reflux Musculoskeletal: Yes (KNEE SCOPE; RIGHT WRIST FX/ORIF 11/2019) Arthritis, Fractures Endocrine: No HEENT: No (glasses) Loss of Vision: Bilateral Hearing Impairment: Denies Cancer: No Psychosocial: No Integumentary: Yes Psoriasis Blood Disorders: No Adverse Reaction/Blood Tranf: No (N/A) Family Medical History Asthma 19 FATHER 19 MOTHER Cardiovascular disease 19 FATHER 19 MOTHER G8 BROTHER Diabetes mellitus 19 FATHER Hypertension 19 FATHER 19 MOTHER G8 BROTHER G8 SISTER Kidney disease G8 SISTER Myocardial infarction G8 SISTER Respiratory disorder 19 FATHER (copd,) Physical Exam Vital Signs Vital Signs - First Documented 03/15/20 08:15 Temp 36.8 Pulse 72 Resp 16 B/P (MAP) 159/111 (127) Pulse Ox 99 O2 Delivery Room Air Capillary Refill : Height, Weight, BMI Height: 5'3.00" Weight: 212lbs. 0.0oz. 96.175927tm; 32.00 BMI Method:Stated General Appearance: No Apparent Distress, WD/WN, Anxious (PT IS VERY ANXIOUS AND TALKS NON-STOP AT GREAT LENGTH. ), Obese HEENT: PERRL/EOMI, TMs Normal, Normal ENT Inspection, Pharynx Normal Neck: Full Range of Motion, Normal Inspection, Non Tender, Supple; No Carotid Bruit, No JVD Respiratory: Normal Breath Sounds, No Accessory Muscle Use, No Respiratory Distress Cardiovascular: Regular Rate, Rhythm, No Edema, No JVD, No Murmur, Normal Peripheral Pulses Gastrointestinal: Non Tender, Soft Back: Normal Inspection Extremity: Normal Capillary Refill, No Pedal Edema, Other (RIGHT WRIST WITH A COMPRESSION SLEEVE IN PLACE) Neurologic/Psychiatric: Alert, Oriented x3, No Motor/Sensory Deficits, Normal Mood/Affect, filleter II-XII Norm as Tested; No Abnormal Cerebellar Tests Skin: Normal Color, Warm/Dry Progress/Results/Core Measures Suspected Sepsis SIRS Temperature: Pulse: Respiratory Rate: Laboratory Tests 03/15/20 08:20: White Blood Count 6.5 Blood Pressure / Mean: Laboratory Tests 03/15/20 08:20: Creatinine 0.82, INR Comment 0.9, Platelet Count 284, Total Bilirubin 0.4 Results/Orders Lab Results Laboratory Tests Test 03/15/20 08:20 03/15/20 09:33 Range/Units White Blood Count 6.5 4.3-11.0 10^3/uL Red Blood Count 4.53 3.80-5.11 10^6/uL Hemoglobin 14.3 11.5-16.0 g/dL Hematocrit 43 35-52 % Mean Corpuscular Volume 94 80-99 fL Mean Corpuscular Hemoglobin 32 25-34 pg Mean Corpuscular Hemoglobin Concent 34 32-36 g/dL Red Cell Distribution Width 12.1 10.0-14.5 % Platelet Count 284 130-400 10^3/uL Mean Platelet Volume 9.8 9.0-12.2 fL Immature Granulocyte % (Auto) 0 % Neutrophils (%) (Auto) 53 42-75 % Lymphocytes (%) (Auto) 33 12-44 % Monocytes (%) (Auto) 8 0-12 % Eosinophils (%) (Auto) 5 0-10 % Basophils (%) (Auto) 1 0-10 % Neutrophils # (Auto) 3.4 1.8-7.8 10^3/uL Lymphocytes # (Auto) 2.1 1.0-4.0 10^3/uL Monocytes # (Auto) 0.5 0.0-1.0 10^3/uL Eosinophils # (Auto) 0.3 0.0-0.3 10^3/uL Basophils # (Auto) 0.1 0.0-0.1 10^3/uL Immature Granulocyte # (Auto) 0.0 0.0-0.1 10^3/uL Prothrombin Time 13.0 12.2-14.7 SEC INR Comment 0.9 0.8-1.4 Activated Partial Thromboplast Time 28 24-35 SEC Sodium Level 141 135-145 MMOL/L Potassium Level 4.0 3.6-5.0 MMOL/L Chloride Level 107 98-107 MMOL/L Carbon Dioxide Level 24 21-32 MMOL/L Anion Gap 10 5-14 MMOL/L Blood Urea Nitrogen 8 7-18 MG/DL Creatinine 0.82 0.60-1.30 MG/DL Estimat Glomerular Filtration Rate > 60 BUN/Creatinine Ratio 10 Glucose Level 103 70-105 MG/DL Calcium Level 8.7 8.5-10.1 MG/DL Corrected Calcium 8.6 8.5-10.1 MG/DL Magnesium Level 1.9 1.6-2.4 MG/DL Total Bilirubin 0.4 0.1-1.0 MG/DL Aspartate Amino Transf (AST/SGOT) 16 5-34 U/L Alanine Aminotransferase (ALT/SGPT) 17 0-55 U/L Alkaline Phosphatase 61 40-136 U/L Troponin I < 0.028 <0.028 NG/ML Total Protein 7.4 6.4-8.2 GM/DL Albumin 4.1 3.2-4.5 GM/DL TSH [place] Testing 1.38 0.35-4.94 UIU/ML Urine Color YELLOW Urine Clarity CLEAR Urine pH 5.5 5-9 Urine Specific [place] 1.025 H 1.016-1.022 Urine Protein NEGATIVE NEGATIVE Urine Glucose (UA) NEGATIVE NEGATIVE Urine Ketones NEGATIVE NEGATIVE Urine Nitrite NEGATIVE NEGATIVE Urine Bilirubin NEGATIVE NEGATIVE Urine Urobilinogen 0.2 < = 1.0 MG/DL Urine Leukocyte Esterase NEGATIVE NEGATIVE Urine RBC (Auto) NEGATIVE NEGATIVE Urine RBC NONE /HPF Urine WBC 0-2 /HPF Urine Squamous Epithelial Cells 10-25 H /HPF Urine Crystals NONE /LPF Urine Bacteria TRACE /HPF Urine Casts NONE /LPF Urine Mucus SMALL H /LPF Urine Culture Indicated NO My Orders Orders - MANN RODRIGUEZ DO Ed Iv/Invasive Line Start (03/15/20 08:24) Ekg Tracing (03/15/20 08:24) Monitor-Rhythm Ecg Trace Only (03/15/20 08:24) Cbc With Automated Diff (03/15/20 08:24) Comprehensive Metabolic Panel (03/15/20 08:24) Magnesium (03/15/20 08:24) Protime With Inr (03/15/20 08:24) Partial Thromboplastin Time (03/15/20 08:24) Thyroid Analyzer (03/15/20 08:24) Ua Culture If Indicated (03/15/20 08:24) Troponin I (03/15/20 08:24) Chest 1 View, Ap/Pa Only (03/15/20 08:24) Ct Head Wo-R/O Stroke (03/15/20 08:24) Scopolamine Patch (Transderm-Scop Patch) (03/15/20 08:30) Meclizine Tablet (Antivert Tablet) (03/15/20 08:30) Ondansetron Injection (Zofran Injectio (03/15/20 08:30) Medications Given in ED Current Medications Medications Dose Ordered Sig/Fidelina Route Start Time Stop Time Status Last Admin Dose Admin Meclizine HCl 50 mg ONCE ONCE PO 03/15/20 08:30 03/15/20 08:31 DC 03/15/20 08:36 50 MG Ondansetron HCl 4 mg ONCE ONCE IVP 03/15/20 08:30 03/15/20 08:31 DC 03/15/20 08:36 4 MG Scopolamine 1.5 mg ONCE ONCE TD 03/15/20 08:30 03/15/20 08:31 DC 03/15/20 08:36 1.5 MG Vital Signs/I&O 03/15/20 03/15/20 08:15 10:19 Temp 36.8 Pulse 72 68 Resp 16 16 B/P (MAP) 159/111 (127) 130/77 Pulse Ox 99 97 O2 Delivery Room Air Room Air Capillary Refill : Progress Note : Progress Note UNEVENTFUL ER STAY NO SYMPTOMS DURING ER STAY ECG Initial ECG Impression Date: Mar 15, 2020 Initial ECG Impression Time: 08:18 Initial ECG Rate: 73 Initial ECG Rhythm: Normal Sinus Diagnostic Imaging Comments CXR--NO ACUTE PROCESS CT HEAD--NO ACUTE PROCESS, PER RADIOLOGIST VIA PHONE AT 0925 Reviewed: Reviewed by Me Departure Impression Primary Impression: Vertigo Disposition: 01 HOME, SELF-CARE Condition: Improved Departure-Patient Inst. Referrals: DORIAN JUAREZ DO (PCP/Family) Primary Care Physician Patient Instructions: Vertigo (a Type of Dizziness) (DC) Add. Discharge Instructions: SLOW POSITION CHANGES FOLLOW UP WITH YOUR DR IN 2-3 DAYS FOR FURTHER CARE, RETURN TO ER IF WORSE Scripts Ondansetron (Ondansetron Odt) 4 Mg Tab.rapdis 4 MG PO Q4H for Nausea/Vomiting, #10 TAB Prov: MANN RODRIGUEZ DO 03/15/20 Meclizine HCl (Meclizine HCl) 25 Mg Tablet 50 MG PO Q6 PRN for DIZZINESS, #15 TAB Prov: MANN RODRIGUEZ DO 03/15/20 Scopolamine (Transderm-Scop) 1 Each Patch.td72 1 EACH TD Q72H, #3 PATCH Prov: MANN RODRIGUEZ DO 03/15/20 MANN RODRIGUEZ DO Mar 15, 2020 08:30
[2020-03-15 08:37] LABS: BASOPHILS # (AUTO) 0.1 10^3/uL (0.0-0.1); BASOPHILS % (AUTO) 1 % (0-10); EOSINOPHILS # (AUTO) 0.3 10^3/uL (0.0-0.3); EOSINOPHILS % (AUTO) 5 % (0-10); HEMATOCRIT 43 % (35-52); HEMOGLOBIN 14.3 g/dL (11.5-16.0); LYMPHOCYTES # (AUTO) 2.1 10^3/uL (1.0-4.0); LYMPHOCYTES % (AUTO) 33 % (12-44); MEAN CORPUSCULAR HEMOGLOBIN 32 pg (25-34); MEAN CORPUSCULAR HGB CONC 34 g/dL (32-36); MEAN CORPUSCULAR VOLUME 94 fL (80-99); MEAN PLATELET VOLUME 9.8 fL (9.0-12.2); MONOCYTES # (AUTO) 0.5 10^3/uL (0.0-1.0); MONOCYTES % (AUTO) 8 % (0-12); NEUTROPHILS # (AUTO) 3.4 10^3/uL (1.8-7.8); NEUTROPHILS % (AUTO) 53 % (42-75); PLATELET COUNT 284 10^3/uL (130-400); WHITE BLOOD COUNT 6.5 10^3/uL (4.3-11.0)
[2020-03-15 08:46] LABS: ALBUMIN 4.1 GM/DL (3.2-4.5); CHLORIDE 107 MMOL/L (98-107); SODIUM 141 MMOL/L (135-145)
[2020-03-15 08:47] LABS: CALCIUM 8.7 MG/DL (8.5-10.1)
[2020-03-15 08:48] LABS: GLUCOSE 103 MG/DL (70-105)
[2020-03-15 08:49] LABS: INR 0.9 (0.8-1.4); TOTAL PROTEIN 7.4 GM/DL (6.4-8.2)
[2020-03-15 08:50] LABS: BILIRUBIN,TOTAL 0.4 MG/DL (0.1-1.0); CARBON DIOXIDE 24 MMOL/L (21-32)
[2020-03-15 08:52] LABS: ALKALINE PHOSPHATASE 61 U/L (40-136); CREATININE SERUM 0.82 MG/DL (0.60-1.30); GFR ESTIMATED > 60
[2020-03-15 08:53] LABS: BUN/CREATININE RATIO 10
[2020-03-15 08:55] LABS: ALANINE AMINOTRANSFERASE 17 U/L (0-55); MAGNESIUM 1.9 MG/DL (1.6-2.4)
[2020-03-15 09:15] LABS: TSH (THYROID ANALYZER) 1.38 UIU/ML (0.35-4.94)
--- NOTE | 2020-03-15 09:25 | Diagnostic Imaging Report ---
EXAMINATION: CT head without contrast. TECHNIQUE: Multiple contiguous axial images were obtained through the brain without the use of intravenous contrast. All CT scans use one or more of the following dose optimizing techniques: automated exposure control, MA and/or KvP adjustment based on a patient size and exam type, or iterative reconstruction. HISTORY: Neuro deficit COMPARISON: CT head 09/04/2007 FINDINGS: The ventricles and sulci are normal. No abnormal attenuation of brain parenchyma is present. No acute intracranial hemorrhage or abnormal extra-axial fluid collections are present. Calcification of the intracranial ICAs. No hyperdense vessel. The calvarium is intact. The mastoid air cells are clear. Fluid or mucosal thickening of the ethmoid sinuses. The orbits are normal. IMPRESSION: 1. No acute intracranial abnormality. Findings were communicated with Dr. Shah by Dr. Rodríguez at 9:24 AM on 03/15/2020. Dictated by: Dictated on workstation # [id number]
--- NOTE | 2020-03-15 09:38 | NUR ---
PT STATES SHE CAN UPDATE HER BY PHONE. DENIES NEEDS AT THIS TIME.
[2020-03-15 09:41] LABS: BILIRUBIN,URINE NEGATIVE (NEGATIVE); CLARITY,URINE CLEAR; COLOR,URINE YELLOW; GLUCOSE, URINE (UA) NEGATIVE (NEGATIVE); KETONES,URINE NEGATIVE (NEGATIVE); LEUKOCYTE ESTERASE ,URINE NEGATIVE (NEGATIVE); NITRITE,URINE NEGATIVE (NEGATIVE); PH,URINE 5.5 (5-9); PROTEIN,URINE NEGATIVE (NEGATIVE)
[2020-03-15 09:52] LABS: BACTERIA,URINE TRACE /HPF; WBC,URINE 0-2 /HPF
--- NOTE | 2020-03-15 09:54 | Diagnostic Imaging Report ---
INDICATION: Dizziness. TIME OF EXAM: 9:18 AM. COMPARISON: 02/01/2018. FINDINGS: The heart size is normal. The pulmonary vascularity is unremarkable. The lungs are clear. No infiltrate, effusion, or pneumothorax is detected. IMPRESSION: No acute cardiopulmonary process is detected. Dictated by: Dictated on workstation # [id number]
--- NOTE | 2020-03-15 10:03 | NUR ---
IN ROOM TALKING TO THE PT AT THIS TIME.
[2020-03-15] MEDS ORDERED: SCOP1PAT11 TD (10:06)
[2020-03-15] MEDS ORDERED: MECL-149 PO (10:06)
[2020-03-15] MEDS ORDERED: ONDA4TAB11 PO (10:06)
[2020-03-15 10:19] VITALS: BP 130/77
== END 2020-03-15 10:19 | disposition home or self-care (01) ==
LOC: EDUNIT# 08:14 → ER 08:15
DX: R42 Dizziness and giddiness (principal); F41.9 Anxiety disorder, unspecified; E66.9 Obesity, unspecified; I10 Essential (primary) hypertension; Z68.32 Body mass index [BMI] 32.0-32.9, adult; Z82.49 Family history of ischemic heart disease and other diseases of the circulatory system; Z83.3 Family history of diabetes mellitus; Z91.041 Radiographic dye allergy status; Z88.8 Allergy status to other drugs, medicaments and biological substances
CPT/HCPCS: 36415; 70450; 71045; 80053; 81000; 83735; 84443; 84484; 85025; 85610; 85730; 93005; 93041

== ENCOUNTER → 2020-07-16 | Outpatient (CLI) | payer OTHER ==
[~2020-07-16] MED LIST changes: -CLIN300C11 PO; +CLIN300C12 PO; +MECL-149 PO; +SCOP1PAT11 TD
--- NOTE | 2020-07-16 09:15 | Diagnostic Imaging Report ---
INDICATION: Routine screening. COMPARISON is made with prior mammograms from 03/12/2018 and 02/12/2017. 2-D and 3-D bilateral screening mammography was performed with CAD. Scattered fibroglandular densities are identified bilaterally. There are benign calcifications bilaterally. No mass or malignant appearing microcalcifications are seen. Axillae are unremarkable. IMPRESSION: BI-RADS Category 2 No mammographic features suspicious for malignancy are identified. ACR BI-RADS Category 2: Benign findings. Result letter will be mailed to the patient. Note: At least 10% of breast cancer is not imaged by mammography. Dictated by: Dictated on workstation # [id number]
== END ==
LOC: RAD 08:15
PROVIDERS: ATTEND Obstetrics & Gynecology
DX: Z12.31 Encounter for screening mammogram for malignant neoplasm of breast (principal)
CPT/HCPCS: 77063; 77067

== ENCOUNTER 2021-03-31 05:39 | Outpatient (CLI) | payer OTHER ==
[~2021-03-31] VITALS: Ht 160 cm; Wt 97.0 kg
[~2021-03-31 05:39] MED LIST changes: +CLIN-144 PO; -CLIN300C12 PO; -OMEP40CA27 PO; +OMEP40CA6 PO; +SCOP1PAT10 TD; -SCOP1PAT11 TD
[2021-04-01] MEDS ORDERED: DOCU100T7 PO (10:51)
[2021-04-01] MEDS ORDERED: ZINC50TA11 PO (10:51)
[2021-04-01] MEDS ORDERED: MULT-985 PO (10:51)
[2021-04-01] MEDS ORDERED: CHOL-34 PO (10:51)
[2021-04-01] MEDS ORDERED: PSEU-182 PO (10:51)
== END 2021-04-01 10:56 | disposition home or self-care (01) ==
LOC: PREOP 05:39
PROVIDERS: ATTEND Surgery
DX: Z01.818 Encounter for other preprocedural examination (principal)

== ENCOUNTER 2021-04-07 06:07 | Day surgery (SDC) | payer OTHER ==
[2021-04-07] VITALS (12 sets, daily range): BP systolic 104–145; BP diastolic 64–87
[~2021-04-07] VITALS: Ht 160 cm; Wt 97.0 kg
[~2021-04-07 06:07] MED LIST changes: +CHOL-34 PO; +DOCU100T7 PO; +MULT-985 PO; +PSEU-182 PO; +ZINC50TA11 PO
[2021-04-07] MEDS ORDERED: ceFAZolin 2 GM IV Premixed 50 ML IV ONE (06:45)
[2021-04-07] MEDS ORDERED: LACTATED RINGERS 1,000 ML IV PRN (06:45)
[2021-04-07] MEDS ORDERED: ceFAZolin 2 GM IV Premixed 50 ML ONE (06:48)
[2021-04-07] MEDS ORDERED: LIDOCAINE/EPI 1%-1:100,000 (XYLOCAINE) 20ML ONE (07:11)
--- NOTE | 2021-04-07 07:52 | Progress Note-Pre Operative ---
Pre-Operative Progress Note H&P Reviewed The H&P was reviewed, patient examined and no changes noted. Date Seen by Provider: Apr 07, 2021 Time Seen by Provider: 07:45 Date H&P Reviewed: Apr 07, 2021 Time H&P Reviewed: 07:45 Pre-Operative Diagnosis: incisional hernia KIM ARECHIGA DO Apr 07, 2021 07:52
[2021-04-07] MEDS ORDERED: MIDAZOLAM 2 MG/2 ML (VERSED) VIAL ONE (07:54)
[2021-04-07] MEDS ORDERED: fentaNYL INJ 100 MCG/2 ML AMP ONE ×2 (07:54→09:44)
[2021-04-07] MEDS ORDERED: proPOfol 200 MG/20 ML (DIPRIVAN) VIAL IV ONE (07:54)
--- NOTE | 2021-04-07 08:53 | Progress Note-Post Operative ---
Post-Operative Progess Note Surgeon (s)/Railroad Police Officer (s) Surgeon KIM ARECHIGA DO Railroad Police Officer: Dr. Chacon to assist in retraction dissection and closure. Pre-Operative Diagnosis incisional hernia Post-Operative Diagnosis incarcerated incisional hernia Procedure & Operative Findings Date of Procedure 04/07/21 Procedure Performed/Findings PROCEDURE: Laparoscopic incarcerated incisional hernia repair with mesh. COMPLICATIONS: None. INDICATIONS: The patient is a 60, female with an incarcerated incisional hernia, which has continued to increase in size and cause discomfort. The patient was explained the risk and benefits of the procedure and wished to proceed with the procedure. Consent was signed on the chart. DESCRIPTION OF PROCEDURE: The patient was taken into the operating suite, prepped and draped in sterile fashion. Surgical pause was performed. Local anesthetic was infiltrated in left upper quadrant. A 15 blade scalpel was used to make a small skin incision. Cautery was used to dissect down to the fascia, which was then scored and divided the muscle, went through the posterior sheath and a balloon trocar was inserted into the abdomen. The abdomen was then insufflated. Incarcerated omentum through the defect. A 5 mm trocar was placed in the right lower quadrant and a 5 mm trocar was placed in left lower quadrant. Echo Ventralight mesh was then inserted in the abdomen grabbed through the stab incision. The balloon was inflated on the mesh. Circumferential tacks were placed with a SecureStrap Tacker. The balloon was then removed and inner crown was created as well. The mesh was tacked with pressure being decreased. The 12 mm fascial defect was then closed using 0 Vicryl. The abdomen was then desufflated,the trocars were removed. The skin was then closed using 4-0 Monocryl in a running subcuticular fashion. The abdomen was washed and dried and Skin Affix was placed over the incisions. The patient tolerated procedure well without any complications. She was taken to recovery room in stable condition. Anesthesia Type general Estimated Blood Loss Estimated blood loss (mL): minimal Specimens/Packing Specimens Removed KIM Corral DO Apr 07, 2021 08:53
[2021-04-07] MEDS ORDERED: NEOSTIGMINE 3 MG/3 ML VIAL ONE (08:54)
[2021-04-07] MEDS ORDERED: GLYCOPYRROLATE 0.2 MG/ML (ROBINUL) 2 ML VIAL ONE (08:54)
[2021-04-07] MEDS ORDERED: ROCURONIUM 10 MG/ML 5 ML SYRINGE IV ONE (08:54)
[2021-04-07] MEDS ORDERED: LIDOCAINE PF 2% 5 ML (XYLOCAINE) VIAL ONE (08:54)
[2021-04-07] MEDS ORDERED: ACHD5005 PO (08:55)
[2021-04-07] MEDS ORDERED: DOCU-143 PO (08:55)
[2021-04-07] MEDS ORDERED: SEVOFLURANE (ULTANE) 15 ML INHAL SOLN ONE (08:57)
[2021-04-07] MEDS ORDERED: KETOROLAC 30 MG/ML VIAL ONE (08:58)
--- NOTE | 2021-04-07 08:58 | Discharge Inst-Simple/Standard ---
Discharge Inst-Standard Discharge Medications New, Converted or Re-Newed RX: RX on Chart (2) Patient Instructions/Follow Up Plan of Care/Instructions/FU: 2 weeks Tian Activity as Tolerated: No Discharge Diet: Regular Diet Other Inst to Patient Follow up Appt: Make appointment for 2-3 weeks Instructions: No lifting greater than 10 pounds. No strenuous activity. May shower in 24 hours, no tub bath or soaking. Use incentive spirometer at home as directed. No Smoking Skin/Wound Care: You have special glue over your incision that will fall off on it's own. Symptoms to Report: Appetite Changes, Extremity Discoloration, Numbness/Tingling, Swelling Increased, Bleeding Excessive, Eyesight Changes, Pain Increased, Urine Color Change, Constipation(Persistent), Fever over 101 degree F, Pain/Pressure in chest, Urinating Difficulty, Cough Up/Vomit Blood, Heart Beat Irreg/Pounding, Pain/Pressure in jaw, Vaginal Bleeding Increase, Cramps in feet or legs, Lightheadedness, Pain/Pressure in shoulder, Diarrhea(Persistent), Memory Changes Suddenly, Questions/Concerns, Weight gain consecutive days, Dizziness/Fainting, Nausea/Vomiting, Shortness of Breath, Weight gain over 2 pounds If questions or concerns contact your physician Or seek help at emergency department. KIM ARECHIGA DO Apr 07, 2021 08:58
[2021-04-07] MEDS ORDERED: ONDANSETRON 4 MG/2 ML (SDV) Z0FRAN ONE ×2 (09:17→09:22)
[2021-04-07] MEDS ORDERED: morphine INJ 10 MG/ML 1ML (SYR OR VIAL) ONE (09:22)
[2021-04-07] MEDS ORDERED: morphine INJ 10 MG/ML 1ML (SYR OR VIAL) IVP ONE (09:30)
[2021-04-07] MEDS: ONDANSETRON 4 MG/2 ML (SDV) Z0FRAN IVP PRN ×2 (09:30→09:50)
--- NOTE | 2021-04-07 09:41 | Anesthesia-General Post-Op ---
General Patient Condition Mental Status/LOC: Same as Preop Cardiovascular: Satisfactory Nausea/Vomiting: Absent Respiratory: Satisfactory Pain: Controlled Complications: Absent Post Op Complications Complications None Follow Up Care/Instructions Patient Instructions None needed. Anesthesia/Patient Condition Patient Condition Patient is doing well, no complaints, stable vital signs, no apparent adverse anesthesia problems. No complications reported per nursing. ROCIO CERVANTES CRNA Apr 07, 2021 09:41
[2021-04-07] MEDS ORDERED: HYDROcodone/APAP 5 MG/325 MG (LORTAB) TAB ONE (10:10)
[2021-04-07] MEDS ORDERED: HYDROcodone/APAP 5 MG/325 MG (LORTAB) TAB PO ONE (10:15)
== END 2021-04-07 11:10 ==
LOC: SDC 06:07
PROVIDERS: ATTEND Surgery
DX: K43.0 Incisional hernia with obstruction, without gangrene (principal); K21.9 Gastro-esophageal reflux disease without esophagitis; J45.909 Unspecified asthma, uncomplicated; I10 Essential (primary) hypertension; E66.9 Obesity, unspecified; Z68.37 Body mass index [BMI] 37.0-37.9, adult; Z79.899 Other long term (current) drug therapy
CPT/HCPCS: 49655; 87081; 94664; C1781

== ENCOUNTER 2021-04-09 01:05 | Emergency (ER) | payer OTHER ==
[~2021-04-09] VITALS: Ht 160 cm; Wt 97.0 kg
[~2021-04-09 01:05] MED LIST changes: +DOCU-143 PO
[2021-04-09 02:07] LABS: BASOPHILS # (AUTO) 0.1 10^3/uL (0.0-0.1); BASOPHILS % (AUTO) 1 % (0-10); EOSINOPHILS # (AUTO) 0.1 10^3/uL (0.0-0.3); EOSINOPHILS % (AUTO) 1 % (0-10); HEMATOCRIT 39 % (35-52); HEMOGLOBIN 12.9 g/dL (11.5-16.0); LYMPHOCYTES # (AUTO) 2.6 10^3/uL (1.0-4.0); LYMPHOCYTES % (AUTO) 27 % (12-44); MEAN CORPUSCULAR HEMOGLOBIN 32 pg (25-34); MEAN CORPUSCULAR HGB CONC 33 g/dL (32-36); MEAN CORPUSCULAR VOLUME 97 fL (80-99); MEAN PLATELET VOLUME 10.1 fL (9.0-12.2); MONOCYTES # (AUTO) 0.7 10^3/uL (0.0-1.0); MONOCYTES % (AUTO) 7 % (0-12); NEUTROPHILS # (AUTO) 6.4 10^3/uL (1.8-7.8); NEUTROPHILS % (AUTO) 65 % (42-75); PLATELET COUNT 246 10^3/uL (130-400); WHITE BLOOD COUNT 9.9 10^3/uL (4.3-11.0)
[2021-04-09 02:12] LABS: ALBUMIN 3.6 GM/DL (3.2-4.5); POTASSIUM 3.8 MMOL/L (3.6-5.0)
[2021-04-09 02:13] LABS: CALCIUM 8.2 MG/DL (8.5-10.1)
[2021-04-09 02:14] LABS: TOTAL PROTEIN 6.4 GM/DL (6.4-8.2)
[2021-04-09 02:16] LABS: BILIRUBIN,TOTAL 0.4 MG/DL (0.1-1.0)
[2021-04-09 02:18] LABS: CREATININE SERUM 0.88 MG/DL (0.60-1.30)
[2021-04-09 02:59] LABS: BILIRUBIN,URINE NEGATIVE (NEGATIVE); CLARITY,URINE SL CLOUDY; COLOR,URINE YELLOW; GLUCOSE, URINE (UA) NEGATIVE (NEGATIVE); KETONES,URINE NEGATIVE (NEGATIVE); LEUKOCYTE ESTERASE ,URINE 2+ (NEGATIVE); NITRITE,URINE NEGATIVE (NEGATIVE); PROTEIN,URINE NEGATIVE (NEGATIVE)
[2021-04-09 03:11] LABS: BACTERIA,URINE MODERATE /HPF
[2021-04-09] MEDS ORDERED: cefTRIAXone 1 GM PRE-MIX 50 ML IV STA (04:06)
[2021-04-09] MEDS ORDERED: DICY20TA10 PO (04:10)
[2021-04-09] MEDS ORDERED: NITR-65 PO (04:10)
--- NOTE | 2021-04-09 04:10 | ED Abdominal Pain ---
General Chief Complaint: Abdominal/GI Problems Stated Complaint: POST OP HERNIA SURGURY PAIN,POSSIBLE FEVER Nursing Triage Note: C/O LEFT SIDED ABDOMINAL PAIN SINCE 2199. REPORTS LAST BM 04/06/21 UMBILICAL HERNIA REPAIR 04/07/21 Source of Information: Patient History of Present Illness Date Seen by Provider: Apr 09, 2021 Time Seen by Provider: 02:05 Initial Comments PT ARRIVES VIA POV FROM HOME PT HAD LAPAROSCOPIC UMBILICAL HERNIA REPAIR SURGERY ON 04/07/[address] ARECHIGA PT HAS NOT HAD BM SINCE 04/06/21 PT BEGAN HAVING DIFFUSE LEFT SIDED "BURNING" PAIN SINCE 2199 TONIGHT TOOK HYDROCODONE AT 2300 WITHOUT RELIEF NO NAUSEA/VOMITING NO FEVER NO URINARY SYMPTOMS PT HAS BEEN EATING AND DRINKING WITH OUT DIFFICULTY. PCP: DR. JUAREZ SURGEON: DR. ARECHIGA Allergies and Home Medications Allergies Coded Allergies: nickel (Verified Allergy, Intermediate, RASH, 04/07/21) selenium sulfide (Verified Allergy, Intermediate, RASH, 04/07/21) Iodinated Contrast Media (Verified Allergy, Unknown, 04/07/21) Patient Home Medication List Home Medication List Reviewed: Yes Cholecalciferol (Vitamin D3) (Vitamin D3) 25 Mcg Tablet, 25 MCG PO DAILY, (Reported) Entered as Reported by: MILO RIBERA on 04/01/21 1051 Dicyclomine HCl (Dicyclomine HCl) 20 Mg Tablet, 20 MG PO Q6H Prescribed by: MANN RODRIGUEZ on 04/09/21 0410 Docusate Sodium (Stool Softener) 100 Mg Tablet, 100 MG PO DAILY, (Reported) Entered as Reported by: MILO RIBERA on 04/01/21 1051 Docusate Sodium (Colace) 100 Mg Capsule, 100 MG PO BID Prescribed by: KIM ARECHIGA on 04/07/21 0855 Estradiol (Estradiol Tablet) 0.5 Mg Tablet, 0.5 MG PO DAILY, (Reported) Entered as Reported by: JAZMIN CALIX on 03/02/17 1116 Hydrocodone/Acetaminophen (Hydrocodone-Acetamin 5-325 mg) 1 Each Tablet, 1 EACH PO Q4H PRN for PAIN-MODERATE (5-7) Prescribed by: IKM ARECHIGA on 04/07/21 0856 Multivitamin with Minerals (Hair, Skin & Nails) 1 Each Tablet, 1 EACH PO DAILY, (Reported) Entered as Reported by: MILO RIBERA on 04/01/21 1051 Nitrofurantoin Monohyd/M-Cryst (Macrobid 100 mg Capsule) 100 Mg Capsule, 1 TAB PO BID Prescribed by: MANN RODRIGUEZ on 04/09/21 0410 Pseudoephedrine HCl (Sudafed) 30 Mg Tablet, 30 MG PO DAILY PRN for allergies, (Reported) Entered as Reported by: MILO RIBERA on 04/01/21 1051 Telmisartan (Telmisartan) 40 Mg Tablet, 40 MG PO DAILY, (Reported) Entered as Reported by: STEVE ORTEGA on 02/01/18 1452 Zinc Gluconate (Zinc) 50 Mg Tablet, 50 MG PO DAILY, (Reported) Entered as Reported by: MILO RIBERA on 04/01/21 1051 Review of Systems Review of Systems Constitutional: no symptoms reported Respiratory: No Symptoms Reported Cardiovascular: No Symptoms Reported Gastrointestinal: See HPI, Abdominal Pain, Constipated; Denies Diarrhea, Denies Nausea, Denies Poor Appetite, Denies Poor Fluid Intake, Denies Vomiting Genitourinary: No Symptoms Reported Musculoskeletal: no symptoms reported; No back pain Skin: no symptoms reported; No rash Psychiatric/Neurological: No Symptoms Reported Endocrine: No Symptoms Reported Hematologic/Lymphatic: No Symptoms Reported Past Sqtxknx-Omcpfe-Ydjtci Hx Patient Social History Tobacco Use?: No Substance use?: No Alcohol Use?: No Pt feels they are or have been: No Immunizations Up To Date First/Initial COVID19 Vaccinat: 08/08 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 HAWK WINTERS, COLONOSCOPY, HYSTERECTOMY. 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 Sexually Transmitted Disease: No HIV/AIDS: No Genitourinary: No Gastrointestinal: Yes Abdominal Hernia, Gastroesophageal Reflux Musculoskeletal: Yes (KNEE SCOPE; RIGHT WRIST FX/ORIF 11/2019) Arthritis, Fractures Endocrine: No HEENT: No (glasses) Loss of Vision: Bilateral Hearing Impairment: Denies Cancer: No Psychosocial: No Integumentary: Yes Psoriasis Blood Disorders: No Adverse Reaction/Blood Tranf: No (N/A) Family Medical History Asthma 19 FATHER 19 MOTHER Cardiovascular disease 19 FATHER 19 MOTHER G8 BROTHER Diabetes mellitus 19 FATHER Hypertension 19 FATHER 19 MOTHER G8 BROTHER G8 SISTER Kidney disease G8 SISTER Myocardial infarction G8 SISTER Respiratory disorder 19 FATHER (copd,) Physical Exam Vital Signs Vital Signs - First Documented 04/09/21 01:48 Temp 36.8 Pulse 85 Resp 18 B/P (MAP) 153/94 (113) Pulse Ox 95 O2 Delivery Room Air Capillary Refill : Less Than 3 Seconds Height/Weight/BMI Height: 5'3.00" Weight: 212lbs. 0.0oz. 96.487732nw; 37.00 BMI Method:Stated General Appearance: WD/WN, no apparent distress Respiratory: normal breath sounds, no respiratory distress, no accessory muscle use Cardiovascular: regular rate, rhythm, no murmur Gastrointestinal: normal bowel sounds, soft; No distended, No guarding, No rebound; tenderness (MILD DIFFUSE LEFT SIDED ABDOMINAL TENDERNESS. SURGICAL SITES ALL APPEAR NORMAL. 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 ) Progress/Results/Core Measures Results/Orders Lab Results Laboratory Tests Test 04/09/21 01:52 04/09/21 02:45 Range/Units White Blood Count 9.9 4.3-11.0 10^3/uL Red Blood Count 4.02 3.80-5.11 10^6/uL Hemoglobin 12.9 11.5-16.0 g/dL Hematocrit 39 35-52 % Mean Corpuscular Volume 97 80-99 fL Mean Corpuscular Hemoglobin 32 25-34 pg Mean Corpuscular Hemoglobin Concent 33 32-36 g/dL Red Cell Distribution Width 12.1 10.0-14.5 % Platelet Count 246 130-400 10^3/uL Mean Platelet Volume 10.1 9.0-12.2 fL Immature Granulocyte % (Auto) 0 % Neutrophils (%) (Auto) 65 42-75 % Lymphocytes (%) (Auto) 27 12-44 % Monocytes (%) (Auto) 7 0-12 % Eosinophils (%) (Auto) 1 0-10 % Basophils (%) (Auto) 1 0-10 % Neutrophils # (Auto) 6.4 1.8-7.8 10^3/uL Lymphocytes # (Auto) 2.6 1.0-4.0 10^3/uL Monocytes # (Auto) 0.7 0.0-1.0 10^3/uL Eosinophils # (Auto) 0.1 0.0-0.3 10^3/uL Basophils # (Auto) 0.1 0.0-0.1 10^3/uL Immature Granulocyte # (Auto) 0.0 0.0-0.1 10^3/uL Sodium Level 137 135-145 MMOL/L Potassium Level 3.8 3.6-5.0 MMOL/L Chloride Level 104 98-107 MMOL/L Carbon Dioxide Level 22 21-32 MMOL/L Anion Gap 11 5-14 MMOL/L Blood Urea Nitrogen 8 7-18 MG/DL Creatinine 0.88 0.60-1.30 MG/DL Estimat Glomerular Filtration Rate 65 BUN/Creatinine Ratio 9 Glucose Level 132 H 70-105 MG/DL Calcium Level 8.2 L 8.5-10.1 MG/DL Corrected Calcium 8.5 8.5-10.1 MG/DL Total Bilirubin 0.4 0.1-1.0 MG/DL Aspartate Amino Transf (AST/SGOT) 16 5-34 U/L Alanine Aminotransferase (ALT/SGPT) 16 0-55 U/L Alkaline Phosphatase 58 40-136 U/L Total Protein 6.4 6.4-8.2 GM/DL Albumin 3.6 3.2-4.5 GM/DL Urine Color YELLOW Urine Clarity SL CLOUDY Urine pH 6.0 5-9 Urine Specific [place] 1.020 1.016-1.022 Urine Protein NEGATIVE NEGATIVE Urine Glucose (UA) NEGATIVE NEGATIVE Urine Ketones NEGATIVE NEGATIVE Urine Nitrite NEGATIVE NEGATIVE Urine Bilirubin NEGATIVE NEGATIVE Urine Urobilinogen 0.2 < = 1.0 MG/DL Urine Leukocyte Esterase 2+ H NEGATIVE Urine RBC (Auto) 1+ H NEGATIVE Urine RBC 2-5 H /HPF Urine WBC 10-25 H /HPF Urine Squamous Epithelial Cells 10-25 H /HPF Urine Crystals NONE /LPF Urine Bacteria MODERATE H /HPF Urine Casts NONE /LPF Urine Mucus NEGATIVE /LPF Urine Culture Indicated YES Micro Results Microbiology 04/09/21 Urine Culture - Final, Complete YEAST Gardnerella vaginalis My Orders Orders - MANN RODRIGUEZ DO Cbc With Automated Diff (04/09/21 02:02) Comprehensive Metabolic Panel (04/09/21 02:02) Ed Iv/Invasive Line Start (04/09/21 02:02) Ua Culture If Indicated (04/09/21 02:09) Ct Abd/Pelvis Wo(Kidney Stone) (04/09/21 02:09) Abdomen/Kub 1view (04/09/21 02:09) Urine Culture (04/09/21 02:45) Ketorolac Injection (Toradol Injection) (04/09/21 04:15) Methylprednisolone Sod Succ (Solu-Medrol (04/09/21 04:15) Ceftriaxone 1 Gm Pre-Mix (Rocephin 1 Gm (04/09/21 04:06) Ketorolac Injection (Toradol Injection) (04/09/21 04:11) Vital Signs/I&O 04/09/21 04/09/21 01:48 04:25 Temp 36.8 36.0 Pulse 85 61 Resp 18 18 B/P (MAP) 153/94 (113) 137/75 Pulse Ox 95 98 O2 Delivery Room Air Room Air Blood Pressure Mean: 113 Progress Progress Note : Progress Note GIVEN IV FLUIDS AND TORADOL FOR PAIN WITH IMPROVEMENT IN SYMPTOMS Diagnostic Imaging Comments CT ABDOMEN/PELVIS--POST OP CHANGES OF UMBILICAL HERNIA REPAIR. NO OTHER ACUTE PROCESS--PER [facility] VIA FAX AT 0780 Reviewed: Reviewed by Me Departure Impression Primary Impression: Post-op pain Additional Impressions: UTI (urinary tract infection) Constipation Hives Disposition: 01 HOME, SELF-CARE Condition: Improved Departure-Patient Inst. Decision time for Depature: 04:00 Referrals: KIM ARECHIGA RICHARD A DO (PCP/Family) Primary Care Physician Patient Instructions: Constipation, Adult (DC), Hives (DC), Patellar Tendon Strain Exercises, Urinary Tract Infection, Adult (DC) Add. Discharge Instructions: LOTS OF CLEAR LIQUIDS TAKE MIRALAX DAILY--MAY USE EVERY 1-2 HOURS UNTIL YOU HAVE A BM AND STOOLS ARE SOFT, THEN USE DAILY CONTINUE YOUR CURRENT MEDICATIONS PRESCRIBED FOLLOW UP WITH DR. ARECHIGA ON SUNDAY RETURN TO ER IF WORSE All discharge instructions reviewed with patient and/or family. Voiced understanding. Scripts Dicyclomine HCl (Dicyclomine HCl) 20 Mg Tablet 20 MG PO Q6H for Abdominal Pain, #20 TAB Prov: MANN RODRIGUEZ DO 04/09/21 Nitrofurantoin Monohyd/M-Cryst (Macrobid 100 mg Capsule) 100 Mg Capsule 1 TAB PO BID, #20 CAP Prov: MANN RODRIGUEZ DO 04/09/21 MANN RODRIGUEZ DO Apr 09, 2021 04:10
[2021-04-09] MEDS ORDERED: KETOROLAC 30 MG/ML VIAL ONE (04:11)
--- NOTE | 2021-04-09 04:12 | Diagnostic Imaging Report ---
PROCEDURE: CT urinary tract, rule out kidney stone. TECHNIQUE: Multiple contiguous axial images were obtained through the abdomen and pelvis without the use of intravenous contrast. Auto Exposure Controls were utilized during the CT exam to meet ALARA standards for radiation dose reduction. INDICATION: Left-sided pain There are no prior CT examinations available for comparison. There is no evidence for nephrolithiasis or urolithiasis and the kidneys do not appear to be obstructed. There is no pelvic mass or free fluid collection evident. There is a small amount of gas within the bladder. This may be secondary to recent instrumentation. The uterus is surgically absent. The appendix was not well-visualized but there are no indirect signs of acute appendicitis. There is a considerable amount of fecal material in the descending colon. The liver, spleen, pancreas, adrenals, aorta and inferior vena cava show no sign of an acute abnormality. There may be a very small amount of sludge within the gallbladder. If further study is desired, then ultrasound would be recommended. The stomach is not well-distended and difficult to assess. There has been prior umbilical hernia repair. There is a small 2.8 cm collection of fluid containing a few gas bubbles on the right side of the repair. A few droplets of gas are also seen in the subcutaneous fat along the anterior abdominal wall on the left. There is increased density in both lung bases. This may well be due to chronic atelectasis/scar formation. Mild pneumonia/atelectasis would be a less likely consideration. Clinical follow-up is recommended. The bone windows show no sign of a fracture or of a destructive lesion. IMPRESSION: 1. There is no acute abnormality of the abdomen or pelvis. 2. There are postsurgical changes consistent with umbilical hernia repair. There is a small collection of fluid containing a few air bubbles in this area and the possibility that this fluid collection is infected should be considered. 3. The increased density in the lung bases may well be chronic in nature. Clinical follow-up is recommended. Dictated by: Dictated on workstation # [id number]
[2021-04-09] MEDS ORDERED: KETOROLAC 15 MG/ML VIAL IVP ONE (04:15)
[2021-04-09] MEDS ORDERED: methylPREDNISolone 125 MG (Solu-MEDROL) VIAL IVP ONE (04:15)
[2021-04-09 04:25] VITALS: BP 137/75
--- NOTE | 2021-04-09 06:32 | Diagnostic Imaging Report ---
EXAM: ABDOMEN/KUB 1VIEW INDICATION: Abdominal pain. COMPARISON: CT abdomen and pelvis 04/09/2021. FINDINGS: Nonspecific bowel gas pattern. Radiopaque sponge markers in the region of the umbilicus. The lung bases are clear. IMPRESSION: No acute radiographic findings in the abdomen. Dictated by: Dictated on workstation # [id number]
== END 2021-04-09 04:26 | disposition home or self-care (01) ==
LOC: EDUNIT# 01:05 → ER 01:09
DX: G89.18 Other acute postprocedural pain (principal); N39.0 Urinary tract infection, site not specified; K59.00 Constipation, unspecified; L50.9 Urticaria, unspecified; I10 Essential (primary) hypertension
CPT/HCPCS: 36415; 74018; 74176; 80053; 81000; 85025; 87077; 87088

== ENCOUNTER → 2022-06-07 | Outpatient (CLI) | payer OTHER ==
[~2022-06-07] MED LIST changes: +DICY20TA PO; +MULT-1054 PO; -MULT-985 PO; +NITR-65 PO
== END ==
LOC: LAB 13:07
PROVIDERS: ATTEND Family Medicine
DX: R07.9 Chest pain, unspecified (principal)
CPT/HCPCS: 36415; 84484

== ENCOUNTER 2022-07-05 08:51 | Emergency (ER) | payer OTHER ==
[~2022-07-05] VITALS: Ht 160 cm; Wt 97.0 kg
[2022-07-05] MEDS ORDERED: ORPHENADRINE 60 MG/2 ML (NORFLEX) AMP (ED ONLY) IM STA (09:52)
[2022-07-05] MEDS ORDERED: KETOROLAC 60 MG/2 ML VIAL IM STA (09:52)
--- NOTE | 2022-07-05 09:54 | ED Back Pain ---
General Chief Complaint: Back Problems Stated Complaint: LOWER BACK PAIN Nursing Triage Note: started to have lower left sided back pain yesterday afternoon/evening. denies taking any thing for pain. tried the heating pad but has not worked. Source of Information: Patient Exam Limitations: No Limitations History of Present Illness Date Seen by Provider: Jul 05, 2022 Time Seen by Provider: 09:44 Initial Comments Here with left-sided back pain that started yesterday afternoon and persisted overnight. She did use topical agents to the area of concern on the left low back and that did not help significantly. She was able to sleep overnight but woke up this morning with fairly significant back pain. She has not tried any oral medication. She did try heating pad and that helped a little bit not effective significantly. She denies any specific injury. She has had back pain before but not like this. She denies numbness between her legs, bowel or bladder incontinence or weakness. No reported fever or chills. Denies dysuria but states she does not drink enough water. Timing/Duration: 24 Hours Severity: Moderate Pain/Injury Location: Back Radiation: Other (None) Method of Injury: Unknown Modifying Factors: Improves With Immobilization Associated Symptoms: No muscle spasms, No fever, No weakness, No numbness in legs/feet, No tingling in legs/feet, No sensory/motor loss; lower back pain; No loss of bladder control, No loss of bowel control Allergies and Home Medications Allergies Coded Allergies: nickel (Verified Allergy, Intermediate, RASH, 04/07/21) selenium sulfide (Verified Allergy, Intermediate, RASH, 04/07/21) Iodinated Contrast Media (Verified Allergy, Unknown, 04/07/21) Patient Home Medication List Home Medication List Reviewed: Yes Cholecalciferol (Vitamin D3) (Vitamin D3) 25 Mcg Tablet, 25 MCG PO DAILY, (Reported) Entered as Reported by: MILO RIBERA on 04/01/21 1051 Dicyclomine HCl (Dicyclomine HCl) 20 Mg Tablet, 20 MG PO Q6H Prescribed by: MANN RODRIGUEZ on 04/09/21 0410 Docusate Sodium (Stool Softener) 100 Mg Tablet, 100 MG PO DAILY, (Reported) Entered as Reported by: MILO RIBERA on 04/01/21 1051 Docusate Sodium (Colace) 100 Mg Capsule, 100 MG PO BID Prescribed by: KIM ARECHIGA on 04/07/21 0855 Estradiol (Estradiol Tablet) 0.5 Mg Tablet, 0.5 MG PO DAILY, (Reported) Entered as Reported by: JAZMIN CALIX on 03/02/17 1116 Hydrocodone/Acetaminophen (Hydrocodone-Acetamin 5-325 mg) 1 Each Tablet, 1 EACH PO Q4H PRN for PAIN-MODERATE (5-7) Prescribed by: KIM ARECHIGA on 04/07/21 0856 Multivitamin with Minerals (Hair, Skin & Nails) 1 Each Tablet, 1 EACH PO DAILY, (Reported) Entered as Reported by: MILO RIBERA on 04/01/21 1051 Nitrofurantoin Monohyd/M-Cryst (Macrobid 100 mg Capsule) 100 Mg Capsule, 1 TAB PO BID Prescribed by: MANN RODRIGUEZ on 04/09/21 0410 Pseudoephedrine HCl (Sudafed) 30 Mg Tablet, 30 MG PO DAILY PRN for allergies, (Reported) Entered as Reported by: MILO RIBERA on 04/01/21 1051 Telmisartan (Telmisartan) 40 Mg Tablet, 40 MG PO DAILY, (Reported) Entered as Reported by: STEVE ORTEGA on 02/01/18 1452 Zinc Gluconate (Zinc) 50 Mg Tablet, 50 MG PO DAILY, (Reported) Entered as Reported by: MILO RIBERA on 04/01/21 1051 Review of Systems Constitutional: see HPI; No chills, No fever Musculoskeletal: back pain Past Yxkoxdi-Nnketi-Vqtzmr Hx Patient Social History Tobacco Use?: No Use of E-Cig and/or Vaping dev: No Substance use?: No Alcohol Use?: Yes Alcohol Frequency: Once in a while Pt feels they are or have been: No Immunizations Up To Date Influenza Vaccine Up-to-Date: No; Not Current First/Initial COVID19 Vaccinat: 08/08 Second COVID19 Vaccination Shiraz: Seasonal Allergies Seasonal Allergies: Yes Past Medical History Surgery/Hospitalization HX: UMBILICAL HERNIA REPAIR 04/07/[address] ARECHIGA ORTHO, COLONOSCOPY, HYSTERECTOMY. 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 Sexually Transmitted Disease: No HIV/AIDS: No Genitourinary: No Gastrointestinal: Yes Abdominal Hernia, Gastroesophageal Reflux Musculoskeletal: Yes (KNEE SCOPE; RIGHT WRIST FX/ORIF 11/2019) Arthritis, Fractures Endocrine: No HEENT: No (glasses) Loss of Vision: Bilateral Hearing Impairment: Denies Cancer: No Psychosocial: No Integumentary: Yes Psoriasis Blood Disorders: No Adverse Reaction/Blood Tranf: No (N/A) Family Medical History Reviewed Nursing Family Hx Asthma 19 FATHER 19 MOTHER Cardiovascular disease 19 FATHER 19 MOTHER G8 BROTHER Diabetes mellitus 19 FATHER Hypertension 19 FATHER 19 MOTHER G8 BROTHER G8 SISTER Kidney disease G8 SISTER Myocardial infarction G8 SISTER Respiratory disorder 19 FATHER (copd,) Physical Exam Vital Signs Vital Signs - First Documented 07/05/22 09:00 Temp 36.6 Pulse 69 Resp 18 B/P (MAP) 128/79 (95) Pulse Ox 98 O2 Delivery Room Air Capillary Refill : Less Than 3 Seconds Height, Weight, BMI Height: 5'3.00" Weight: 212lbs. 0.0oz. 96.619064xg; 37.00 BMI Method:Stated General Appearance: WD/WN, Mild Distress Cardiovascular: Regular Rate, Rhythm, No Murmur Respiratory: Lungs Clear, Normal Breath Sounds Gastrointestinal: Non Tender, Soft Back: No Vertebral Tenderness; Other (Tender left low back at the SI joint without significant spasms. No obvious step-off. No skin findings noted.) Neurologic/Psychiatric: Alert, Oriented x3, Other (No lower extremity dysfunction noted including sensory loss. She is able to point toes up and down. She has good strength of both feet and ankles bilateral. She does have pain when moving her legs to the low back.) Skin: Normal Color, Warm/Dry Progress/Results/Core Measures Results/Orders Lab Results Laboratory Tests Test 07/05/22 09:32 Range/Units Urine Color YELLOW Urine Clarity CLEAR Urine pH 6.0 5-9 Urine Specific [place] 1.015 L 1.016-1.022 Urine Protein NEGATIVE NEGATIVE Urine Glucose (UA) NEGATIVE NEGATIVE Urine Ketones NEGATIVE NEGATIVE Urine Nitrite NEGATIVE NEGATIVE Urine Bilirubin NEGATIVE NEGATIVE Urine Urobilinogen 0.2 < = 1.0 MG/DL Urine Leukocyte Esterase NEGATIVE NEGATIVE Urine RBC (Auto) TRACE-I H NEGATIVE Urine RBC RARE /HPF Urine WBC NONE /HPF Urine Squamous Epithelial Cells 2-5 /HPF Urine Renal Epithelial Cells NONE /HPF Urine Crystals NONE /LPF Urine Bacteria NEGATIVE /HPF Urine Casts NONE /LPF Urine Mucus NEGATIVE /LPF Urine Culture Indicated NO My Orders Orders - KARINA MCKEE MD Ua Culture If Indicated (07/05/22 09:52) Hydrocodone/Apap 5/325 Tablet (Lortab 5 (07/05/22 10:00) Ketorolac Injection (Toradol Injection) (07/05/22 09:52) Orphenadrine Inj (Ed Only) (Norflex Inje (07/05/22 09:52) Medications Given in ED Current Medications Medications Dose Ordered Sig/Fidelina Route Start Time Stop Time Status Last Admin Dose Admin Acetaminophen/ Hydrocodone Bitart 1 ea ONCE ONCE PO 07/05/22 10:00 07/05/22 10:01 DC 07/05/22 10:17 1 EA Vital Signs/I&O 07/05/22 09:00 Temp 36.6 Pulse 69 Resp 18 B/P (MAP) 128/79 (95) Pulse Ox 98 O2 Delivery Room Air Blood Pressure Mean: 95 Progress Progress Note : Progress Note Seen and evaluated. Toradol 60 mg IM, Norflex 60 mg IM and hydrocodone 1 tab p.o. ordered. We will check UA. Differential diagnosis includes UTI, urinary obstruction, musculoskeletal pain. 1028: UA reviewed and shows no significant abnormality including no indication of infection or significant bleeding. 1130: Patient is overall doing much better. This does appear to be more musculoskeletal related. Discharged home with return precautions. Patient verbalized understanding of instructions and agreement with plan. Initial ECG Impression Date: Jul 05, 2022 Departure Impression Primary Impression: Back strain Qualified Codes: S39.012A - Strain of muscle, fascia and tendon of lower back, initial encounter Disposition: HOME, SELF-CARE Condition: Against Medical Advice Departure-Patient Inst. Decision time for Depature: 11:30 Referrals: DORIAN JUAREZ DO (PCP/Family) Primary Care Physician Patient Instructions: Low Back Pain (DC) Add. Discharge Instructions: All discharge instructions reviewed with patient and/or family. Voiced understanding. You may take ibuprofen 600 mg every 8 hours as needed for pain. You may also take Tylenol/acetaminophen 1000 mg every 8 hours as needed for pain. Do not ta ke prescribed hydrocodone containing compound with acetaminophen/Tylenol as they both have acetaminophen in them. You may use [id number]-[id number] Icy Hot with lidocaine patches or cream, Aspercreme with lidocaine patches or cream, Salonpas with lidocaine patches or cream or similar items to area of concern per package directions. Follow-up with your doctor in a few days for recheck. Return for worse pain, weakness, numbness between your legs, difficulty with walking or going to the bathroom, fever or other concerns as needed. Scripts Hydrocodone/Acetaminophen (Hydrocodone-Acetamin 5-325 mg) 5 Mg-325 Mg Tablet 1 TAB PO Q6H PRN for PAIN-MODERATE (5-7) for 7 Days, #8 TAB 0 Refills Prov: KARINA MCKEE MD 07/05/22 Cyclobenzaprine HCl (Cyclobenzaprine HCl) 10 Mg Tablet 10 MG PO Q8H PRN for SPASMS, #15 TAB 0 Refills Prov: KARINA MCKEE MD 07/05/22 Copy Copies To 1: DORIAN JUAREZ TIMOTHY D MD Jul 05, 2022 09:54
[2022-07-05 09:58] LABS: BILIRUBIN,URINE NEGATIVE (NEGATIVE); CLARITY,URINE CLEAR; COLOR,URINE YELLOW; GLUCOSE, URINE (UA) NEGATIVE (NEGATIVE); KETONES,URINE NEGATIVE (NEGATIVE); LEUKOCYTE ESTERASE ,URINE NEGATIVE (NEGATIVE); NITRITE,URINE NEGATIVE (NEGATIVE); PROTEIN,URINE NEGATIVE (NEGATIVE)
[2022-07-05] MEDS ORDERED: HYDROcodone/APAP 5 MG/325 MG (LORTAB) TAB PO ONE (10:00)
[2022-07-05 10:11] LABS: BACTERIA,URINE NEGATIVE /HPF; RBC,URINE RARE /HPF
[2022-07-05] MEDS ORDERED: ACHD5005 PO (11:31)
[2022-07-05] MEDS ORDERED: CYCL10TA25 PO (11:31)
[2022-07-05 11:50] VITALS: BP 109/69
== END 2022-07-05 11:50 | disposition home or self-care (01) ==
LOC: EDUNIT# 08:51 → ER 08:53
DX: S39.012A Strain of muscle, fascia and tendon of lower back, initial encounter (principal); X58.XXXA Exposure to other specified factors, initial encounter
CPT/HCPCS: 81000; 99284

== ENCOUNTER → 2022-09-11 | Outpatient (CLI) | payer OTHER ==
[~2022-09-11] MED LIST changes: +CYCL10TA25 PO
--- NOTE | 2022-09-11 16:59 | Diagnostic Imaging Report ---
EXAMINATION: Right wrist radiographs, 3 views. COMPARISON: December 13, 2019. HISTORY: 62-year-old female, right wrist pain. Fall. FINDINGS: There is sideplate and screw fixation hardware at the level of the distal radius. The hardware appears intact. There is no identified residual fracture line in the radius. There is a fixation screw in the scaphoid which also appears intact. There is a well-corticated ossification near the ulnar styloid compatible with sequela of prior ulnar styloid fracture. There is no identified acute fracture. The joint spaces are fairly well preserved. IMPRESSION: 1. Intact hardware at the level of the distal radius and scaphoid without identified complication. 2. Sequela of prior ulnar styloid fracture. 3. No identified acute bony abnormality of the right wrist. Dictated by: Dictated on workstation # [id number]
== END ==
LOC: RAD 11:56
PROVIDERS: ATTEND Family Medicine
DX: M25.531 Pain in right wrist (principal); S52.611S Displaced fracture of right ulna styloid process, sequela; W19.XXXS Unspecified fall, sequela
CPT/HCPCS: 73110